=== PATIENT | male | born 1955 | race Caucasian/White ===

== ENCOUNTER → 2023-08-18 06:43 | Outpatient (REF) | payer OTHER, SELFPAY | LOC: MRI 06:43 | PROVIDERS: ATTENDING PHYSICIAN Nurse Practitioner Adult Health; FAMILY PHYSICIAN Emergency Medicine | DX: I63.9 Cerebral infarction, unspecified (principal); R51.9 Headache, unspecified; I72.5 Aneurysm of other precerebral arteries; R41.3 Other amnesia | CPT/HCPCS: 70551 ==

== ENCOUNTER 2023-08-28 16:11 | Emergency (ER) | payer OTHER, SELFPAY ==
[2023-08-28 16:18] VITALS: BP 148/68
--- NOTE | 2023-08-28 17:14 | ED.GENMED ---
History of Present Illness
General
Chief Complaint: Headache
Source: patient
Time Seen by Provider: 08/28/23 17:01
Travel History
Have you had any contact with someone who has COVID-19?: No
Do you have any symptoms of coronavirus? Fever > 100 degrees, chills, cough, shortness of breath, sore throat, loss of taste or smell, muscle aches, or headache?: No
History of Present Illness
History of Present Illness:
68-year-old male with past medical history of migraines, CVA, hypertension presenting to the emergency department for evaluation after he was speaking on the phone with his significant other, around 9:30 AM started to feel generally unwell. Shortly
after feeling unwell patient started to have a migraine described to be frontal headache, nonradiating, constant. He took a new migraine medication that he was just prescribed and states after around an hour or so started to have full relief of
symptoms and notes that he has remained without any symptoms. Patient's significant other recommended he contact his primary care provider which the patient did and primary care recommended he come to the ER for further evaluation. Due to his
history of CVA patient is on daily 81 mg aspirin which she reports good compliance with. He has a follow-up visit with the ENT scheduled for Wednesday due to an abnormal MRI finding of mastoiditis on his MRI that was performed as part of his CVA
workup.
Past History
Past History
ED Past Medical History: CVA, GERD, HTN and Hypercholesterolemia
ED Past Surgical History: None
Social History
Tobacco: Non-smoker
Alcohol: None
Drug: None
Personal: Other
Living: alone
Employment: Employed
Review of Systems
Review of Systems
All Other Systems: ROS reviewed and negative except as documented in HPI and ROS
Phy Exam
Physical Exam
Physical Exam:
GENERAL: Alert , in no apparent distress
EYE: pupils equal and reactive
NECK: Supple, no significant adenopathy.
ENT: o/p clr, mmm.
CARDIAC: Regular rate and rhythm .
LUNGS: Clear breath sounds bilaterally, no acute respiratory distress, no wheezes/rales/rhonchi
ABDOMEN: Soft, without focal tenderness, no r/g, no cvat
SKIN: Warm and dry, skin intact.
MUSCULOSKELETAL: No edema, well perfused.
PSYCH: Normal and appropriate interaction.
NEURO: Ambulates with steady gait, moves all extremities, 5 out of 5 upper and lower extremity strength bilateral, sensation grossly intact and equal to light touch. No dysmetria, no dysarthria, no aphasia
Scores
Heart Failure Risk
Heart Failure Risk Score: Not Applicable
Heart Score for Chest Pain Patients
STEMI patient?: Not applicable
Withdrawal Assessment of Alcohol
Withdrawal Assessment Completed?: Not applicable
Course
Orders/Labs/Results
Orders:
Orders
08/28/23 17:10
CT Head W/o Iv Contrast Urgent
Comment:
Reason For Exam: headache, hx cva
Vital Signs
Initial and Last Documented VS:
Initial Vital Signs
Temp Pulse Resp BP Pulse Ox
97.7 F 105 20 148/68 97
08/28/23 16:18 08/28/23 16:18 08/28/23 16:18 08/28/23 16:18 08/28/23 16:18
Last Documented Vital Signs
Temp Pulse Resp BP Pulse Ox
97.7 F 105 20 148/68 97
08/28/23 16:18 08/28/23 16:18 08/28/23 16:18 08/28/23 16:18 08/28/23 16:18
MDM/Problems Addressed
Differential Diagnosis Includes:
Migraine headache, tension headache, less concern for CVA
MDM/Problems Addressed:
68-year-old male present emergency department for evaluation after experiencing a headache today but also feeling as if you are having an out of body sensation. Primary care provider recommended patient come to the ER for further evaluation.
Patient did not experience any focal neurologic deficits during his migraine and maintains that he has no symptoms at this time. Due to his history of CVA will obtain a head CT. Anticipate if this is normal patient will be stable for discharge
home and outpatient management.
Chronic conditions affecting care: Neurological disorder (Migraine headache/CVA)
Acute Exacerbation and/or Progression of Chronic Illness: Neurological disorder (Migraine headache)
*Pulse Oximetry
Patient hypoxic: no
*Critical Care Note
Total Time (30-74mins, 75-104mins- exclusive of procedures): Not Applicable
Data Reviewed
Review of Other/Old Records Reveals: Labs, Records and Radiology Studies
Source: patient
Patient Management
Escalation/DeEscalation of care consider admission/obs:
Patient's head CT unremarkable for any acute pathology. He remains asymptomatic. He will follow-up with primary care provider as needed.
ED Attending Note
-
Portions of this chart may have been created with voice recognition software.� Occasional wrong word or��sound alike� substitutions may have occurred due to the inherent limitations of voice recognition software.
Discharge Plan
Departure
Patient Disposition: Home (Routine Discharge)
Date of Disposition: 08/28/23
Time of Disposition: 17:40
Patient with high blood pressure during this ER visit?: Yes
Discharge Problem:
Headache, migraine
Instructions: Migraines (DC)
Prescriptions:
No Action
losartan 50 mg Tablet
50 mg PO DAILY
acetaminophen-caffeine 500-65 mg Tablet
1 tab PO M68IONY PRN (Reason: migraines)
amlodipine 5 mg Tablet
5 mg PO DAILY
omeprazole 40 mg Capsule,Delayed Release(Dr/Ec)
40 mg PO DAILY
rizatriptan 10 mg Tablet,Disintegrating
10 mg PO DAILYPRN PRN (Reason: migraines)
Tremfya 100 mg/mL Auto-Injector
100 mg SC Q8W
atorvastatin 40 mg Tablet
40 mg PO QPM Qty: 30 0RF
clopidogrel 75 mg Tablet
75 mg PO DAILY Qty: 15 0RF
aspirin [Children's Aspirin] 81 mg Tablet,Chewable
81 mg PO DAILY Qty: 0 0RF
Referrals:
Yaneth Rockwell MD [Family Provider] -
Interventions
Interventions:
*ED COVID-19 Vaccine History Last Done: 08/28/23 16:18
Discharge Date and Time
Print Language: MALAY
[2023-08-28 17:50] VITALS: BP 139/73
== END 2023-08-28 18:00 | disposition home or self-care (01) ==
LOC: EMR 16:11
PROVIDERS: EMERGENCY PHYSICIAN Student in an Organized Health Care Education/Training Program; FAMILY PHYSICIAN Emergency Medicine
DX: G43.909 Migraine, unspecified, not intractable, without status migrainosus (principal); I10 Essential (primary) hypertension; K21.9 Gastro-esophageal reflux disease without esophagitis; E78.00 Pure hypercholesterolemia, unspecified; Z86.73 Personal history of transient ischemic attack (TIA), and cerebral infarction without residual deficits; Z79.82 Long term (current) use of aspirin; Z88.2 Allergy status to sulfonamides; Z88.8 Allergy status to other drugs, medicaments and biological substances
CPT/HCPCS: 99284; 70450

== ENCOUNTER 2023-10-28 13:07 | Inpatient (IN) | payer OTHER, SELFPAY ==
[2023-10-28] VITALS (18 sets, daily range): BP systolic 94–152; BP diastolic 59–118; BMI 31.6
--- NOTE | 2023-10-28 09:21 | ED.GENMED ---
History of Present Illness
General
Chief Complaint: Chest Pain
Time Seen by Provider: 10/28/23 09:06
Travel History
Have you had any contact with someone who has COVID-19?: No
Do you have any symptoms of coronavirus? Fever > 100 degrees, chills, cough, shortness of breath, sore throat, loss of taste or smell, muscle aches, or headache?: No
History of Present Illness
History of Present Illness:
68 yo male w/ hx of CVA, PFO, HTN and HLD presents to the Emergency Department for evaluation of chest tightness that began today while swimming. He notes over the past 2 weeks having throat discomfort with any exertion; this resolves rapidly at
rest. He had been able to swim lightly without reproduction of symptoms until the past 2 days. Currently asymptomatic. No prior diagnosed cardiac disease. Was admitted to this hospital in March 2023 due to acute ischemic stroke at which time a
Medtronic LINQ was implanted and PFO was noted on NICOLAS.
Past History
Past History
ED Past Medical History: CVA, GERD, HTN and Hypercholesterolemia
ED Past Surgical History: None
Social History
Tobacco: Non-smoker
Alcohol: None
Drug: None
Personal: Other
Living: alone
Employment: Employed
Review of Systems
Review of Systems
Allergies reviewed?: Yes
All Other Systems: ROS reviewed and negative except as documented in HPI and ROS
Phy Exam
Physical Exam
Physical Exam:
GEN: Well appearing, NAD, WDWN
HEENT: Oral mucosa moist, no scleral icterus
Cardiac: Regular rate and rhythm, no murmur
Lung: No respiratory distress, no tachypnea to auscultation bilaterally
MSK: No gross deformity or injuries
Skin: Good color, no pallor or jaundice, no rashes
Neuro: AO x3, moves all extremities freely
Psych: Calm, cooperative
Scores
Heart Score for Chest Pain Patients
STEMI patient?: No
History: Highly Suspicious
ECG: Normal
Age: >/= 65 years
Risk Factors: >/= 3 Risk Factors or History of CAD
Troponin: </= Normal Limit
Heart Score for Chest Pain Patients: 6
Heart Score Risk: 20.3% MACE over next 6 weeks
Course
Orders/Labs/Results
Orders:
Orders
10/28/23 09:02
Electrocardiogram (*1) Urgent
Reason for Study: Chest Pain
EKG- Treatment ONCE
10/28/23 09:17
CR Chest - 2 Views Urgent
Comment:
Reason For Exam: chest pain
10/28/23 09:38
Complete Blood Count/With Diff Urgent
Comprehensive Metabolic Panel Urgent
Troponin I Urgent
10/28/23 10:43
EKG- Treatment ONCE
Aspirin Chewable [Low Strength Aspirin] 243 mg PO NOW STA
10/28/23 12:05
Heparin Protocol- PTT Orders As Directed
PTT per Heparin protocol: -Obtain CBC and baseline PTT - if not already collected.
-Obtain PTT 6 hours from start of infusion. Then, every 6 hours until 2 consecutive
PTT's are therapeutic. Then, PTT Daily.
-With each rate change, obtain PTT every 6 hours until 2 consecutive PTT's are
therapeutic. Then, PTT Daily.
Notify MD As Directed
Notify physician if: PTT is greater than or equal to 200.
10/28/23 12:15
Heparin 50984 Units/250 ml 25,000 units in 250 ml IV PER PROTOCOL
Weight to be used for heparin protocol in kilograms (kg):: 94.2
Protocol:: Cardiac Tx/Acute Coronary
PTT Goal Range to be used:: PTT 73 to 111 seconds
Order type:: Initial
INITIAL Infusion Dose (UNITS/KG/hr) & then follow protocol:: 15 units/kg/hr
Infusion Dose in UNITS/hr & then follow protocol (UNITS/hr):: 1,400
INFUSION RATE in mL/hr & then follow protocol (mL/hr):: 14
PTT less than or equal to 64 seconds:: Increase rate by 200 units/hr (+ 2 mL/hr)
PTT 64.1 to 72.9 seconds:: Increase rate by 100 units/hr (+ 1 mL/hr)
PTT 73 to 111 seconds:: Target Range. No change in rate.
PTT 111.1 to 130.9 seconds:: Decrease rate by 100 units/hr (- 1 mL/hr)
PTT 131 to 199.9 seconds:: HOLD for 1 hr. Then decrease rate by 200 units/hr (- 2 mL/hr)
PTT greater than or equal to 200 seconds:: HOLD for 2 hrs & Notify Provider. Then decrease by 200 units/hr (-
2 mL/hr)
Lab follow-up:: Each change, PTT q6h until 2 consecutive are therapeutic. Then PTT
daily.
10/28/23 12:30
EKG [Electrocardiogram (*1)] Routine
Reason for Study: Chest Pain
10/28/23 12:34
PTT Urgent
Comment: Obtain baseline before beginning heparin infusion if not already collected
Troponin I Routine
10/28/23 12:51
Admit/Transfer Patient As Directed
Co-Sign Provider:
Level of Care: Inpatient admission
Assign to:: IVU
Physician / Group: [facility], Dr. Quintanilla
Diagnosis: USA, chest pain
Reason for Hospitalization: USA, chest pain
Expected length of stay greater than two midnights?: Yes
ELOS- Estimated Length of Stay in days: 2
I certify the patient meets the requirements for IP care: Yes
10/28/23 12:53
Code Status As Directed
Resuscitation Status: Full Code
10/30/23 06:00
Complete Blood Count/No Diff Q2D
Comment: Notify MD if platelet count is <130,000 or decreases by 50% from baseline
11/01/23 06:00
Complete Blood Count/No Diff Q2D
Comment: Notify MD if platelet count is <130,000 or decreases by 50% from baseline
11/03/23 06:00
Complete Blood Count/No Diff Q2D
Comment: Notify MD if platelet count is <130,000 or decreases by 50% from baseline
11/05/23 06:00
Complete Blood Count/No Diff Q2D
Comment: Notify MD if platelet count is <130,000 or decreases by 50% from baseline
11/07/23 06:00
Complete Blood Count/No Diff Q2D
Comment: Notify MD if platelet count is <130,000 or decreases by 50% from baseline
11/09/23 06:00
Complete Blood Count/No Diff Q2D
Comment: Notify MD if platelet count is <130,000 or decreases by 50% from baseline
11/11/23 06:00
Complete Blood Count/No Diff Q2D
Comment: Notify MD if platelet count is <130,000 or decreases by 50% from baseline
11/13/23 06:00
Complete Blood Count/No Diff Q2D
Comment: Notify MD if platelet count is <130,000 or decreases by 50% from baseline
Abnormal Lab Results
10/28/23 10/28/23
09:38 12:34
WBC 4.3 L 10^3/uL
(4.8-10.8)
Monocytes % 11.3 H %
(1.7-9.3)
Glucose 108 H mg/dl
(70-99)
Troponin I 0.054 H* D ng/ml
10/28/23 09:38
10/28/23 09:38
Vital Signs
Initial and Last Documented VS:
Initial Vital Signs
Temp Pulse Resp BP Pulse Ox
98.1 F 89 18 152/118 96
10/28/23 09:00 10/28/23 09:00 10/28/23 09:00 10/28/23 09:00 10/28/23 09:00
Last Documented Vital Signs
Temp Pulse Resp BP Pulse Ox
98.1 F 67 19 136/80 95
10/28/23 09:00 10/28/23 13:30 10/28/23 13:30 10/28/23 13:00 10/28/23 12:45
MDM/Problems Addressed
MDM/Problems Addressed:
68-year-old male presents with exertional chest discomfort for the past 2 weeks. I have a high clinical suspicion for coronary disease given his risk factors exertion nature of symptoms. Although his EKG is nonischemic and initial troponin was
nondiagnostic, I feel he is too high risk to be discharged home for further outpatient ischemic evaluation. Cardiology was consulted plans to admit the patient to their service for cardiac catheterization due to the high index of suspicion for ACS.
Comment
Comment:
Initial EKG independently interpreted by me shows a normal sinus rhythm with occasional PACs, rate of 76, questionable submillimeter ST depressions in V5 and V6 that are comparable to prior tracing from March 2023, QTc of 409
*Critical Care Note
Total Time (30-74mins, 75-104mins- exclusive of procedures): Not Applicable
Update Note
Update Note:
0939: Medtronic interrogation verbal report from rep showing no events since 10/13, battery life adequate
ED Attending Note
-
Portions of this chart may have been created with voice recognition software.� Occasional wrong word or��sound alike� substitutions may have occurred due to the inherent limitations of voice recognition software.
Discharge Plan
Departure
Patient Disposition: Admit
Date of Disposition: 10/28/23
Time of Disposition: 11:19
Admit to: Telemetry
Presentation/result/management discussed w/ accepting MD/DO: Cardiology
Discharge Problem:
Chest pain with high risk of acute coronary syndrome
Interventions
Interventions:
*Risk Screen - Suicide Last Done: 10/28/23 09:00
*General Assessment Last Done: 10/28/23 09:00
*Neglect/Abuse Screening Last Done: 10/28/23 09:00
ED- Fall Risk Assessment Last Done: 10/28/23 09:47
*ED COVID-19 Vaccine History Last Done: 10/28/23 09:31
*Nursing Disposition Last Done: 10/28/23 14:05
ED- Cardiac Assessment Last Done: 10/28/23 09:32
Discharge Date and Time
Discharge Date/Time: 10/28/23 14:06
[2023-10-28 09:55] LABS: % Basophils 1.2 % (0-2); % Eosinophils 2.1 % (0-6); % Immature Granulocytes 0.2 % (0-0.5); % Monocytes 11.3 % (1.7-9.3); % Neutrophils 55.2 % (42.2-75.2); Absolute Basophils 0.1 10^3/uL (0-0.2); Absolute Eosinophils 0.1 10^3/uL (0-0.7); Absolute Lymphocytes 1.3 10^3/uL (1.2-3.4); Absolute Monocytes 0.5 10^3/uL (0.1-0.6); Absolute Neutrophils 2.4 10^3/uL (1.4-6.5); Hematocrit 42.5 % (39.0-52.0); Hemoglobin 14.9 g/dL (13.0-18.0); Mean Corp Hgb Conc. 35.1 g/dL (33.0-37.0); Mean Corpuscular Hgb 30.8 pg (27.0-31.0); Mean Corpuscular Volume 87.8 fL (80.0-94.0); Mean Platelet Volume 10.1 fL (7.4-10.4); Nucleated Red Blood Cells % 0 % (-); Platelet Count 202 10^3/uL (130-400); Red Blood Cell Count 4.84 10^6/uL (4.70-6.10); White Blood Cell Count 4.3 10^3/uL (4.8-10.8)
[2023-10-28 10:12] LABS: ALT (SGPT) 36 U/L (0-50); AST (SGOT) 34 U/L (17-59); Albumin 4.1 g/dl (3.5-5.0); Alkaline Phosphatase 62 U/L (38-126); Blood Urea Nitrogen 15 mg/dl (9-20); Calcium 9.4 mg/dl (8.4-10.2); Carbon Dioxide 29 mmol/L (22-30); Chloride 107 mmol/L (98-107); Estimated Creatinine Clearance 98 ml/min; Glucose 108 mg/dl (70-99); Potassium 4.3 mmol/L (3.5-5.1); Sodium 140 mmol/L (135-145); Total Bilirubin 0.7 mg/dl (0.2-1.3); Total Protein 6.9 g/dl (6.3-8.2); eGFR > 60.00
[2023-10-28] MEDS: LOW STRENGTH ASPIRIN 243 MG PO (10:59)
--- NOTE | 2023-10-28 11:38 | PHANOTE ---
med rec ruth ann- patient states he took nurtec as needed for migraines from a free sample from doctor's office, but has run out weeks ago.
--- NOTE | 2023-10-28 12:07 | CON.CAR ---
Addendum entered and electronically signed by Isa Quintanilla MD 10/28/23 18:30:
I saw and examined the patient.
The Take Out Waiter's note was reviewed and I agree with the note.
Comment: Patient was seen and evaluated by me in the emergency department. Briefly he is a 68-year-old gentleman with past medical history of hypertension, hyperlipidemia, family history of coronary artery disease along with DVT/PEs, migraine
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
throat discomfort with progressed into exertional chest discomfort at the time of swimming associated with shortness of breath which caused him to present to the emergency department. ECG with nonspecific T wave changes in the inferior leads.
Patient is chest pain-free at rest.
Vital signs and lab work were reviewed. On exam patient is well-appearing in no acute distress, normal S1 and S2, regular rate, clear to auscultation bilaterally, elevated JVD PE, abdomen is soft, nontender, nondistended with active bowel sounds,
warm extremities without significant edema. 2+ radial pulse was appreciated.
Plan:
1. Given multiple cardiovascular risk factors with progressive exertional symptoms and typical angina, with concern for acute coronary syndrome, we discussed pursuing a coronary angiogram which patient is agreeable to. Detailed informed consent
was obtained.
2. In the interim we will start treatment medically for presumed NSTEMI with full dose aspirin, high intensity statin, IV unfractionated heparin and beta-fanny as tolerated.
3. Further recommendations based on heart catheterization. We will also plan for an echocardiogram today.
Isa Quintanilla MD, [facility], [facility]
Original Note:
Consultation
Consultation Request
Date/Time Consultation Performed: 10/28/23
Performing Provider: Dr. Isa Quintanilla
Reason for Consultation: H&P for admission e chest pain, [facility]
Medical History
-
History of Present Illness:
Patient came to [facility] today with chest pain and cardiology was called to see patient in the ER. Patient says that starting 2 weeks ago he noticed chest pain within 20 steps of his usual 4-5 mile walk that he takes 4-5 days a week. The chest pain is
relieved with rest. Patient says that he often continues his walk and the chest pain is constant throughout the walk, but does not necessarily get worse and he has not had to stop his walk because of pain. He also swims Tuesdays and and
says that he had pain with trying to swim this morning, but what really brought him in was an episode of resting chest pain he had last night. Chest pain is actually upper chest into the neck and feels like a spasm. Prior to last night pain only
occurred with activity, but last night he had pain in bed. Pain resolved without specific intervention and resting pain has not recurred.
PMH:
h/o CVA with embolic appearing posterior circulation ischemic infarction
PFO, possible ASD noted on transthoracic echocardiogram 03/26/23
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
Hypertension
Dyslipidemia
History of migraine headache
Family history of DVT/PE in siblings
Past Medical History
Past Medical History: Other (in HPI)
Past Surgical History: Cardiac (Linq since 03/2023)
Social History
Tobacco: Non-Smoker
Alcohol: Occasional (2-3 imtes a week)
Drug: None
Living: Alone
Family History
Family History: CAD and Cancer
Allergies / Home Medications
Allergy/AdvReac Type Severity Reaction Status Date / Time
ramipril [From Altace] Allergy Unknown Verified 10/28/23 09:00
Sulfa (Sulfonamide Allergy Unknown Verified 10/28/23 09:00
Antibiotics)
�Medication �Instructions �Recorded �Confirmed �Type
amlodipine 5 mg tablet 5 mg PO DAILY Blood Pressure 03/25/23 10/28/23 History
guselkumab 100 mg/mL subcutaneous 100 mg SC Q8W PSORIASIS 03/25/23 10/28/23 History
auto-injector (Tremfya)
losartan 50 mg tablet 50 mg PO DAILY Blood Pressure 03/25/23 10/28/23 History
omeprazole 40 mg capsule,delayed 40 mg PO DAILY High Cholesterol 03/25/23 10/28/23 History
release
aspirin 81 mg chewable tablet 81 mg PO DAILY #0 tabs 03/30/23 10/28/23 Rx
(Children's Aspirin)
atorvastatin 40 mg tablet 40 mg PO DAILY 10/28/23 10/28/23 History
budesonide-formoterol HFA 80 2 puff inhalation R DAILYPRN PRN 10/28/23 10/28/23 History
mcg-4.5 mcg/actuation aerosol sob
inhaler
famotidine 20 mg tablet 20 mg PO HS 10/28/23 10/28/23 History
therapeutic multivitamin 1 tab PO DAILY 10/28/23 10/28/23 History
Review of Systems
-
History Source: Patient
All other systems: Negative unless noted
Physical Exam
Vital Signs
Temp Pulse Resp BP Pulse Ox
98.1 F 75 19 131/78 96
10/28/23 09:00 10/28/23 09:28 10/28/23 09:28 10/28/23 09:28 10/28/23 09:47
GEN: NAD. AAOx3
HEENT: EOMI, MMM
LUNGS: CTA B/L, no wheezes or rales
CV: Reg, S1/S2, no murmur
ABD: soft, BS+, NT, ND
EXT: No clubbing, cyanosis, lesions or edema B/L
NEURO: Gross non-focal
SKIN: Warm, dry and pink. No rash
Lab Results
10/28/23 09:38
10/28/23 09:38
Troponin I 0.020 ng/ml 10/28/23 09:38
Impression / Plan
-
PCP: Dr. Rockwell
Cardiology: Dr. Quintanilla
Impression:
USA
Abnormal ECG
Admission for CVA and PFO 03/25/23 until 03/30/23
h/o CVA with embolic appearing posterior circulation ischemic infarction
PFO, possible ASD noted on transthoracic echocardiogram 03/26/23
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
Hypertension
Dyslipidemia
History of migraine headache
Family history of DVT/PE in siblings
Echo 03/26/23: EF 55-60%, normal diastolic function, normal RV size and function, mild aortic regurgitation, evidence of right to left shunt with agitated saline contrast consistent with PFO/ASD
Plan:
-Patient came to [facility] today with chest pain and cardiology was called to see patient in the ER. Patient says that starting 2 weeks ago he noticed chest pain within 20 steps of his usual 4-5 mile walk that he takes 4-5 days a week. The chest pain is
relieved with rest. Patient says that he often continues his walk and the chest pain is constant throughout the walk, but does not necessarily get worse and he has not had to stop his walk because of pain. He also swims Tuesdays and and
says that he had pain with trying to swim this morning, but what really brought him in was an episode of resting chest pain he had last night. Chest pain is actually upper chest into the neck and feels like a spasm. Prior to last night pain only
occurred with activity, but last night he had pain in bed. Pain resolved without specific intervention and resting pain has not recurred.
-Initial Troponin 0.02. ECG reviewed by me with new inferior and lateral ST changes. Patient also gives a history of USA with resting chest pain episode last night. Talked to patient about options of evaluating his symptoms and he wishes to proceed
with cardiac catheterization.
-Will start Heparin gtt in the ER, ordered by me
-Patient took his usual dose of aspirin 81 mg this morning and was given an additional 243 mg in the ER
-Patient previously tolerated DAPT with aspirin and Plavix for 3 weeks after his CVA 03/2023. Reviewed labor gang supervisor procedure and possibility of PCI and need for DAPT with patient and he cannot think of a reason why he owuld not tolerate DAPT.
-Check CVE, cont usual dose of atorvastatin 40 mg daily for now
-Prior to admission patient was taking amlodipine 5 mg daily and losartan 50 mg daily as well
-Check echo
[2023-10-28] MEDS: HEPARIN 25000 UNITS/250 ML IV (12:38)
[2023-10-28 13:05] LABS: APTT 33.9 Sec (23.4-35.0)
[2023-10-28 13:32] LABS: Troponin I 0.054 ng/ml
[2023-10-28 14:56] LABS: ACT-LR - POC 285 Seconds (116-155)
[2023-10-28 16:13] LABS: ACT-LR - POC 308 Seconds (116-155)
--- NOTE | 2023-10-28 16:38 | ITS.CL.CATH ---
P[facility] - Catheterization
Cardiac Catheterization
Procedure Report:
LEFT HEART CATHETERIZATION AND CORONARY INTERVENTION
Date of Procedure: October 28, 2023
Referring: [facility]
PROCEDURES:
1. Left catheterization, coronary angiogram.
2. Ultrasound-guided access.
3. Successful percutaneous coronary artery intervention of 2 serial 90% hazy stenoses in the proximal and mid RCA, complicated by significant no reflow in mid to distal LAD post pre-dilatation resulting in significant chest discomfort and ST
elevations periprocedurally status post placement of two 3.5 x 23 mm and 3.5 x 33 mm Xience Skypoint drug-eluting stents, postdilated using 3.75 x 20 mm NC trek balloon at 18 curt distally and 4.0 x 20 mm NC trek balloon at 20 curt proximally with an
excellent angiographic result and GIACOMO-3 flow into the distal vessel
INDICATION: Mr. Silver is a 68-year-old gentleman with past medical history of hypertension, hyperlipidemia, recent stroke in March thought to be embolic in origin, incidental PFO found during that admission, significant family history of coronary
artery disease who presents with 2 weeks of progressive exertional chest discomfort and rest discomfort today found to have an NSTEMI now being referred for a left heart catheterization to rule out obstructive CAD.
ACCESS: Right radial artery, 6 Estonian sheath, under ultrasound guidance. There is some right subclavian tortuosity.
HEMODYNAMICS : (mmHg)
AO (s/d) : 127/82
LV (s/d) : 125/6
LVEDP : 15
CORONARY FINDINGS
DOMINANCE: Right
LEFT MAIN: The left main artery is a large-caliber vessel which gives rise to the left anterior descending artery and the left circumflex artery. There is minimal luminal irregularities.
LEFT ANTERIOR DESCENDING: The left anterior descending artery is a large-caliber vessel which gives rise to 1 major diagonal branch as it courses through the anterior interventricular groove and wraps around the apex. There is a 50% proximal LAD
stenosis at the level of the takeoff of a very large septal branch.
CIRCUMFLEX: The left circumflex artery is a medium caliber vessel which gives rise to 2 obtuse marginal branches. There is mild disease in the mid left circumflex artery and otherwise minimal luminal irregularities.
RIGHT CORONARY ARTERY: The right coronary artery is a large-caliber, dominant vessel with a high anterior takeoff (engage selectively using a MPA diagnostic catheter) which gives rise to the right posterior descending artery and the right
posterolateral system. There are 2 serial hazy high-grade 90% stenoses in the proximal and mid RCA, respectively which are thought to be the likely culprit of presenting NSTEMI. Decision was made to move forward with intervention percutaneously.
CORONARY INTERVENTION: Soon after the diagnostic portion patient had sudden onset of rigors without clear etiology but did not have any other complaints. We made sure that there was no evidence of an allergic type reaction. Hemodynamically patient
was stable. We decided to give additional sedation and a bit more time before proceeding with intervention. Patient's symptoms completely resolved within 2 to 3 minutes and therefore decision was made to not staged intervention but move forward
given he presented with a non-ST elevation MN. Additional heparin was given to maintain a therapeutic ACT throughout the case. A 6 Estonian MPA 1 guide catheter was used to selectively engage the RCA. We navigated the to proximal and mid RCA
lesions using a 190 cm 0.014 power turn flex wire which was parked in the distal vessel. Given the anterior high takeoff of the RCA with a immediate band soon after takeoff we decided to upfront bring in a guide liner for additional support. We
then brought in a 3.0 x 20 mm trek semicompliant balloon for predilatation and predilated the lesions at nominal pressure with good expansion. Soon after predilated and the mid RCA stenosis, GIACOMO I flow was noted in the distal vessel with evidence
of coronary no reflow. At this time we also noted new ST elevations on our monitor and patient complained of chest discomfort. We moved expeditiously to stent the lesions. Initially we deployed a 3.5 x 23 mm Xience haja point drug-eluting stent
covering the mid RCA lesion. We then brought in a 3.5 x 33 mm Xience haja point drug-eluting stent and deployed this more proximally. Given no significant improvement in flow with ongoing chest discomfort and ST elevations we decided to attempt
bringing in microcatheter's to deliver vasodilators into the distal vessel to improve coronary no reflow. Intracoronary nitroglycerin was given through the guide catheter in the meantime. In the setting of a periprocedural MN, patient also had
transient 2-1 heart block low doses of atropine. We had also called for additional support and CT surgeon, Dr. Kwabena Armenta was present in the [facility]. We removed the guide liner and try to bring in a 300 cm 0.014' BMW wire through a fine cross
microcatheter however given poor guide support and patient movement we had some difficulty navigating this wire. Given this we decided to bring in a twin pass over the power turn flex wire that was already in place. Again due to guide support
being poor, we had difficulty advancing the twin pass microcatheter beyond the proximal portion. At this point we took a selective angiography to make sure we were not getting caught on anything else and to help reposition the guide for better
support. At this point just with intra coronary nitroglycerin we had given through the guide catheter flow seem to have improved and was GIACOMO-3 into the distal vessel. We therefore decided to move forward with postdilatation of the stents. The
stents were initially postdilated using a 3.75 x 20 mm NC balloons at 18 curt. We further postdilated the proximal stent with a 4.0 x 20 mm NC trek balloon at 20 curt with an excellent angiographic result and GIACOMO-3 flow into the distal vessel. At
the end of the case patient was in a stable junctional rhythm with heart rates in the high 50s, low 60s. Blood pressure was normal. Patient was chest pain-free at the end of the case. He was loaded with 180 mg of ticagrelor.
SEDATION: 156 minutes of procedural sedation was utilized. An independent medical physiologist was present to assist with and help manage the patient's level of consciousness and physiologic status.
RADIATION SUMMARY: Fluoro Time (min): 42.4, Dose (mGy): 1858.4, DAP (Gy.cm2) : 115.8
Closure Device: Vascular band over right radial artery, 14 cc of air
CONCLUSIONS
1. Successful percutaneous coronary artery intervention of 2 serial 90% hazy stenoses in the proximal and mid RCA, complicated by significant no reflow in mid to distal LAD post pre-dilatation resulting in significant chest discomfort and ST
elevations periprocedurally status post placement of two 3.5 x 23 mm and 3.5 x 33 mm Xience Skypoint drug-eluting stents, postdilated using 3.75 x 20 mm NC trek balloon at 18 curt distally and 4.0 x 20 mm NC trek balloon at 20 curt proximally with an
excellent angiographic result and GIACOMO-3 flow into the distal vessel
2. 50% stenosis in the proximal LAD at the level of the takeoff of a very large septal branch.
3. Mildly elevated LVEDP at 15mmHG.
RECOMMENDATIONS
1. Uninterrupted dual antiplatelet therapy with daily baby aspirin and Brilinta 90 mg twice daily for at least 1 year along with high intensity statin. Holding off on beta-fanny for now in the setting of junctional heart rhythm.
2. Monitor closely on telemetry for 24 to 48 hours.
3. Obtain full echocardiogram to assess biventricular function.
4. Aggressive management of cardiovascular risk factors.
5. Wean radial band per protocol.
6. Outpatient referral for cardiac rehab.
Isa Quintanilla MD, FACC, [facility] [place]
--- NOTE | 2023-10-28 17:15 | PTCARENOTE ---
Pt arrived to CVICU at 1650. No complaints of chest pain. Arrived on Nitro @ 20mcg/min. EKG completed, accelerated junctional rhythm. HR 70. BP 111/63 MAP 76. Pulse oximetry 95% on room air. Right radial band in place with 14mL air, site intact, no
complaints of numbness or tingling. Neurovascular assessment WNL.
[2023-10-28] MEDS: PROTONIX 40 MG PO (18:00)
--- NOTE | 2023-10-28 19:57 | PTCARENOTE ---
rec'd patient. assessment as documented. oriented x3, denies CP, nitro gtt titrated off per protocol. SB on monitor. R radial TR band in place, no swelling or bleeding noted. on RA, denies SOB, satting 97%. currently finishing dinner, urinal at
bedside. family at bedside, updated. educated to inform this RN of any changes with TR band site or new onset CP. call chambers within reach, care ongoing.
[2023-10-28] MEDS: PEPCID 20 MG PO (20:41)
--- NOTE | 2023-10-28 21:10 | PTCARENOTE ---
R radial TR band removed at 2105. sterile gauze and tegaderm applied.
--- NOTE | 2023-10-28 21:31 | PTCARENOTE ---
pt c/o throat cramping. he informed this RN that this specific pain preceded his chest pain prior to arrival. chief financial officer monitoring manager notified. nitro gtt remains on standby. also notified of bradycardia in 40s. pt asymptomatic for now. no new orders at
this time. pt educated to inform RN of new onset CP. care ongoing.
[2023-10-28 23:20] LABS: APTT 33.3 Sec (23.4-35.0)
[2023-10-29] VITALS (13 sets, daily range): BP systolic 111–149; BP diastolic 64–88; BMI 29.3
[2023-10-29 04:57] LABS: Hematocrit 40.4 % (39.0-52.0); Hemoglobin 14.4 g/dL (13.0-18.0); Mean Corp Hgb Conc. 35.6 g/dL (33.0-37.0); Mean Corpuscular Hgb 30.6 pg (27.0-31.0); Platelet Count 184 10^3/uL (130-400); Red Cell Dist. Width 12.3 % (11.5-14.5); White Blood Cell Count 6.6 10^3/uL (4.8-10.8)
--- NOTE | 2023-10-29 05:16 | PTCARENOTE ---
pt OOB with supervision to bathroom. remains in chair after. hygiene provided. AM labs sent. EKG done. pt denies CP at this time, states that throat cramping/pain has resolved. remains SB on monitor. nitro gtt remains off. call chambers within reach,
care ongoing.
[2023-10-29 05:26] LABS: Blood Urea Nitrogen 13 mg/dl (9-20); Calcium 9.4 mg/dl (8.4-10.2); Carbon Dioxide 25 mmol/L (22-30); Chloride 107 mmol/L (98-107); Estimated Creatinine Clearance 86 ml/min; Glucose 102 mg/dl (70-99); HDL Cholesterol 42 mg/dl; LDL Cholesterol, Calculated 49 mg/dl; Potassium 4.4 mmol/L (3.5-5.1); Sodium 138 mmol/L (135-145); Total Cholesterol 112 mg/dl (50-199); Triglyceride 107 mg/dl (10-149); Very Low Density Lipoprotein 21 mg/dl (0-30); eGFR > 60.00
[2023-10-29 06:14] LABS: Hepatitis C Antibody Negative (Negative)
[2023-10-29] MEDS: NORVASC PO (07:24)
[2023-10-29] MEDS: COZAAR 50 MG PO (07:24)
[2023-10-29] MEDS: PROTONIX 40 MG PO (07:24)
[2023-10-29] MEDS: LIPITOR 40 MG PO (07:24)
[2023-10-29] MEDS: BRILINTA 90 MG PO ×2 (07:24→21:20)
[2023-10-29] MEDS: THERAGRAN 1 TABLET PO (07:25)
[2023-10-29] MEDS: LOW STRENGTH ASPIRIN 81 MG PO (07:25)
--- NOTE | 2023-10-29 07:36 | PTCARENOTE ---
rec'd pt this shift awake and alert sitting in chair. Pt SB on monitor, denies CP, SOB. AM meds given. See worklist for VS/I and O and assessments.
--- NOTE | 2023-10-29 09:11 | W.PN.CARDCBS ---
Addendum entered and electronically signed by Isa Quintanilla MD 10/29/23 13:22:
I saw and examined the patient.
The Glass Melt Operator's note was reviewed and I agree with the note.
Comment: Patient remained stable throughout the night with no recurrent chest discomfort. He tells me he had a brief episode of very mild throat discomfort which resolved without any significant interventions. He has been ambulating within his
room this morning without any difficulty. No issues at the right radial access site.
Vital signs and lab work reviewed. ECG showing no acute ischemic changes. Exam is notable for a well-appearing gentleman in no acute distress, normal S1 and S2, no murmurs, rubs or gallops, lungs are clear to auscultation bilaterally, no JVD,
right radial access site has a dressing in place which is clean dry and intact without evidence on exam of hematoma or bruit, warm extremities without significant edema
On telemetry he is in sinus bradycardia with heart rates in the 70s. His blood pressures are above 100 systolic.
Recommendations:
1. Continue with dual antiplatelet therapy with daily baby aspirin and Brilinta 90 mg twice daily along with high intensity statin.
2. Plan to follow-up on echocardiogram today.
3. Will aim to start low-dose beta-fanny later tonight versus tomorrow. Continue amlodipine and losartan.
4. Continue to monitor on telemetry for another 24 hours. Stable for transfer to IVU.
5. Referral for outpatient cardiac rehab.
Isa Quintanilla MD, [facility], [facility]
Original Note:
Today's Communication / Plan
-
continue post [place] care
serial troponin to peak
Echo today
DAPT
Ok to transfer to IVU
Impression / Plan
-
PCP: Dr. Rockwell
Cardiology: Dr. Quintanilla
Impression:
NSTEMI
periprocedural STEMI post PCI RCA x 2 MALIA
Admission for CVA and PFO 03/25/23 until 03/30/23
h/o CVA with embolic appearing posterior circulation ischemic infarction
PFO, possible ASD noted on transthoracic echocardiogram 03/26/23
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
Hypertension
Dyslipidemia
LOUISE/CPAP
History of migraine headache
Family history of DVT/PE in siblings
Echo 03/26/23: EF 55-60%, normal diastolic function, normal RV size and function, mild aortic regurgitation, evidence of right to left shunt with agitated saline contrast consistent with PFO/ASD
10/28/23 [facility]:
1. Successful percutaneous coronary artery intervention of 2 serial 90% hazy stenoses in the proximal and mid RCA, complicated by significant no reflow in mid to distal LAD post pre-dilatation resulting in significant chest discomfort and ST
elevations periprocedurally status post placement of two 3.5 x 23 mm and 3.5 x 33 mm Xience Skypoint drug-eluting stents, postdilated using 3.75 x 20 mm NC trek balloon at 18 curt distally and 4.0 x 20 mm NC trek balloon at 20 curt proximally with an
excellent angiographic result and GIACOMO-3 flow into the distal vessel
2. 50% stenosis in the proximal LAD at the level of the takeoff of a very large septal branch.
3. Mildly elevated LVEDP
Plan:
-Post PCI RCA x2 periprocedurally had no reflow with CP and ST elevations with some bradycardia and JR, admitted to CVICU post
-this morning he is CP free, tele with SR no sig ectopy o/n
-Serial troponin to peak - 4.0 this am
-Full Echo today, limited echo intraprocedural with no effusion or WMA
-DAPT ASA/Brilinta uninterrupted for 1 year, CM to eval cost
-continue losartan, will wait to add BB today with bradycardia o/n and see what Echo shows
-LDL 49, continue atorvastatin 40mg
-Cardiac rehab c/s
-Activity restrictions reviewed
-f/u DCA 2-4 weeks
-OK to transfer to IVU
-continue to monitor on tele another 24 hours
Progress Note - Wire Frame Lamp Shade Maker
Subjective
Date of Service: October 29, 2023
no cp, sob
Objective
Labs:
10/29/23 04:48
10/29/23 04:48
Labs
Hgb 14.4 g/dL (13.0-18.0) 10/29/23 04:48
Hct 40.4 % (39.0-52.0) 10/29/23 04:48
Plt Count 184 10^3/uL (130-400) 10/29/23 04:48
APTT 33.3 Sec (23.4-35.0) 10/28/23 23:01
Sodium 138 mmol/L (135-145) 10/29/23 04:48
Potassium 4.4 mmol/L (3.5-5.1) 10/29/23 04:48
BUN 13 mg/dl (9-20) 10/29/23 04:48
Creatinine 0.8 mg/dL (0.7-1.3) 10/29/23 04:48
Glucose 102 mg/dl (70-99) H 10/29/23 04:48
Troponins
10/28/23 10/28/23 10/28/23
09:38 12:34 18:10
Troponin I 0.020 0.054 H* D 0.190 H* D
10/28/23 10/28/23 10/29/23
20:00 23:03 04:48
Troponin I Cancelled 1.180 H* D 4.010 H* D
10/29/23
05:04
Troponin I Cancelled
Vital Signs and I&O:
Vital Signs
Temp Pulse Resp BP Pulse Ox
98.3 F 54 18 128/71 98
10/29/23 07:20 10/29/23 07:24 10/29/23 07:20 10/29/23 07:24 10/29/23 07:32
Vital Signs
Temp Pulse Resp BP Pulse Ox
98.3 F 54 18 128/71 98
10/29/23 07:20 10/29/23 07:24 10/29/23 07:20 10/29/23 07:24 10/29/23 07:32
Intake & Output
10/27/23 10/28/23 10/29/23 10/30/23
06:59 06:59 06:59 06:59
Intake Total 725.3 / 725.3 500 / 500
Output Total 250 / 250
Balance 475.3 / 475.3 500 / 500
Physical Exam
Physical Exam
General: No acute distress, AAOX3
HEENT: EOMI b/l
Neck: Negative JVD, Neg carotid bruits b/l
Heart: Regular, Negative S3 positive S1/S2, Negative S4, No murmur
Lungs: CTA b/l, negative wheezes/rales/rhonchi
Abd: Positive BS, NT/ND, neg rebound/rigidity/guarding
Ext: Negative cyanosis/clubbing/edema
Neuro: nonfocal
Skin: w/d/i, R rad site c/d/i, scant ecchymosis
--- NOTE | 2023-10-29 09:42 | CM ---
crys soto -called pts [facility]- his copay is $47, it is in stock.
[2023-10-29] MEDS: NORVASC 5 MG PO (09:50)
--- NOTE | 2023-10-29 10:09 | PTCARENOTE ---
Assumed care of pt upon tsf from CV. Pt arrives ambulating from previous room. VSS, CM shows NSR 60-70's, POX 95% on RA. Right radial site remains CDI with normal CMS. He denies any pain or discomfort at this time. Ambulating frequently in
hallway. Trop due at 1200.
--- NOTE | 2023-10-29 12:30 | PTCARENOTE ---
Trop still rising last one up to 5.320 will re-check at 1800.
[2023-10-29 12:37] LABS: Glycohemoglobin (HgbA1c) 5.8 % (4.0-5.6)
--- NOTE | 2023-10-29 12:44 | CM ---
Chart reviewed. Patient is independent of ADLS, lives alone in a 1 STH, 3 DANIAL around front and 4 DANIAL around side, 0 DME. Plan is for the patient to return home no needs CM to follow
--- NOTE | 2023-10-29 12:45 | CM ---
Pricing on Brilinta through the patient's [facility] is $47 a month retail and $94 for 90 day mail order. Patient is agreeable to the cost. I called the patient's [facility] and it is in stock.. I placed a free 30 day coupon in the patient's red
discharge folder
[2023-10-29] MEDS: TOPROL XL 12.5 MG PO (17:24)
--- NOTE | 2023-10-29 20:45 | PTCARENOTE ---
Assumed care of pt from prev nsg shift, AAOx3 w/no c/o CP or SOB. Pt w/VS stable w/HR 60's-70's, BP 123/75. Pt w/R radial cath site w/dressing C/D/I w/some purple/red ecchymosis around the site, but no signs or symptoms of bleeding or hematoma. Pt
w/call chambers within reach & plan of care ongoing.
[2023-10-29] MEDS: PEPCID 20 MG PO (21:20)
[2023-10-30 04:47] VITALS: BP 127/72
[2023-10-30 05:07] LABS: Hematocrit 40.1 % (39.0-52.0); Hemoglobin 14.3 g/dL (13.0-18.0); Mean Corp Hgb Conc. 35.7 g/dL (33.0-37.0); Mean Corpuscular Hgb 30.7 pg (27.0-31.0); Mean Corpuscular Volume 86.1 fL (80.0-94.0); Platelet Count 181 10^3/uL (130-400); Red Blood Cell Count 4.66 10^6/uL (4.70-6.10); Red Cell Dist. Width 12.2 % (11.5-14.5); White Blood Cell Count 5.8 10^3/uL (4.8-10.8)
[2023-10-30 06:47] VITALS: BP 132/85
[2023-10-30] MEDS: THERAGRAN 1 TABLET PO (08:06)
[2023-10-30] MEDS: LOW STRENGTH ASPIRIN 81 MG PO (08:07)
[2023-10-30] MEDS: LIPITOR 40 MG PO (08:07)
[2023-10-30] MEDS: NORVASC 5 MG PO (08:07)
[2023-10-30] MEDS: BRILINTA 90 MG PO (08:07)
[2023-10-30] MEDS: COZAAR 50 MG PO (08:07)
[2023-10-30] MEDS: PROTONIX 40 MG PO (08:07)
--- NOTE | 2023-10-30 08:34 | W.PN.CARDCBS ---
Addendum entered and electronically signed by Amber Jane PA-C 10/30/23 11:34:
[id number]
Addendum entered and electronically signed by Sky Rubio MD 10/30/23 09:18:
Patient seen, interviewed and examined by me.
Well-appearing, no acute distress
Regular rate and rhythm with normal S1 and S2, no S3 no S4. There is a grade 1/6 AHSM and no rubs. PMI is normally placed.
Lungs are clear to auscultation bilaterally without wheezes rales or rhonchi.
Abdomen soft nontender nondistended with normoactive bowel sounds
Extremities show trace pretibial edema bilaterally no clubbing or cyanosis.
He remains pain-free.
Agree with advanced practice professionals assessment and plan as noted below.
Discussed with patient and all of his questions have been answered. Outpatient follow-up has been arranged.
Original Note:
Today's Communication / Plan
-
Stable for d/c to home
Impression / Plan
-
PCP: Dr. Rockwell
Cardiology: Dr. Quintanilla
Impression:
NSTEMI, peak Troponin 5.32
Periprocedural STEMI
CAD
s/p 3.5 mm and 3.5 mm Xience to mid to distal 10/28/23
residual 50% LAD lesion by cath 10/28/23
Admission for CVA and PFO 03/25/23 until 03/30/23
h/o CVA with embolic appearing posterior circulation ischemic infarction
PFO, possible ASD noted on transthoracic echocardiogram 03/26/23
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
Hypertension
Dyslipidemia
LOUISE/CPAP
History of migraine headache
Family history of DVT/PE in siblings
Echo 03/26/23: EF 55-60%, normal diastolic function, normal RV size and function, mild aortic regurgitation, evidence of right to left shunt with agitated saline contrast consistent with PFO/ASD
Echo 10/28/23: EF 55 to 60%, no regional wall motion abnormality
Echo 10/29/23: EF 65 to 70%, no regional wall motion abnormality, no MR, mild aortic regurgitation
Plan:
-Patient with USA on admission and Troponin was trending up to 0.054 just prior to going to the skilled laborer. While in the skilled laborer patient was found to have RCA disease and there was no reflow following initial pre-dilatation which resolved with PCI.
Troponin peaked at 5.32.
-Patient previously tolerated aspirin and Plavix post-CVA in 03/2023. Patient reports that his cost for Brilinta will be $94 for 3 months which might be tight for his finances so he might be interested in transitioning from Brilinta to Plavix in the
future.
-Overnight tele reviewed and he tolerated addition of Toprol XL 12.5 mg 10/29/23 PM. No heart block and no significant bradycardia. Will continue Toprol XL upon d/c
-LDL 49 and outpatient dose of atorvastatin 40mg continued
-Outpatient dose of losartan 50 mg daily continued
-Outpatient dose of amlodipine 5 mg daily continued
-D/C to home
Progress Note - Evaluation Manager
Subjective
Date of Service: October 30, 2023
He feels well and wants to go home
Objective
Labs:
10/30/23 04:53
10/29/23 04:48
Labs
Hgb 14.3 g/dL (13.0-18.0) 10/30/23 04:53
Hct 40.1 % (39.0-52.0) 10/30/23 04:53
Plt Count 181 10^3/uL (130-400) 10/30/23 04:53
APTT 33.3 Sec (23.4-35.0) 10/28/23 23:01
Sodium 138 mmol/L (135-145) 10/29/23 04:48
Potassium 4.4 mmol/L (3.5-5.1) 10/29/23 04:48
BUN 13 mg/dl (9-20) 10/29/23 04:48
Creatinine 0.8 mg/dL (0.7-1.3) 10/29/23 04:48
Glucose 102 mg/dl (70-99) H 10/29/23 04:48
Troponins
10/28/23 10/28/23 10/28/23
09:38 12:34 18:10
Troponin I 0.020 0.054 H* D 0.190 H* D
10/28/23 10/28/23 10/29/23
20:00 23:03 04:48
Troponin I Cancelled 1.180 H* D 4.010 H* D
10/29/23 10/29/23 10/29/23
05:04 12:22 18:25
Troponin I Cancelled 5.320 H* D 4.350 H*
10/30/23
04:53
Troponin I 2.850 H*
Vital Signs and I&O:
Vital Signs
Temp Pulse Resp BP Pulse Ox
97.7 F 62 18 127/72 96
10/30/23 07:00 10/30/23 05:00 10/30/23 07:00 10/30/23 04:47 10/30/23 07:00
Vital Signs
Temp Pulse Resp BP Pulse Ox
97.7 F 62 18 127/72 96
10/30/23 07:00 10/30/23 05:00 10/30/23 07:00 10/30/23 04:47 10/30/23 07:00
Intake & Output
10/28/23 10/29/23 10/30/23 10/31/23
06:59 06:59 06:59 06:59
Intake Total 725.3 / 725.3 1340 / 1340
Output Total 250 / 250
Balance 475.3 / 475.3 1340 / 1340
Physical Exam
Physical Exam
GEN: NAD. AAOx3
HEENT: EOMI, MMM
LUNGS: No audible wheeze
CV: SR on tele
ABD: ND
EXT: No edema B/L
NEURO: Gross non-focal
SKIN: No rash
--- NOTE | 2023-10-30 10:00 | W.DS.TRANS ---
DC Summary - Bail Bondsman
-
Discharge Instructions:
Discharge Diagnosis/Procedures NSTEMI, Angioplasty with stent to RCA x2
Diet Low Cholesterol
Driving Restrictions No driving for 24 hours
Bathing Restrictions OK to Shower
Other Services Cardiac Rehab
Instructions:
Stand-Alone Forms: DC Instructions- Cath/EP Lab
Changes to Home Medications: Yes
Discharge Medications:
DC Medications w/original date entered in [employer]
amlodipine 5 mg tablet 5 mg PO DAILY Blood Pressure 03/25/23
guselkumab 100 mg/mL subcutaneous auto-injector (Tremfya) 100 mg SC Q8W PSORIASIS 03/25/23
losartan 50 mg tablet 50 mg PO DAILY Blood Pressure 03/25/23
omeprazole 40 mg capsule,delayed release 40 mg PO DAILY High Cholesterol 03/25/23
aspirin 81 mg chewable tablet (Children's Aspirin) 81 mg PO DAILY #0 tabs 03/30/23
atorvastatin 40 mg tablet 40 mg PO DAILY 10/28/23
budesonide-formoterol HFA 80 mcg-4.5 mcg/actuation aerosol inhaler 2 puff inhalation R DAILYPRN PRN sob 10/28/23
famotidine 20 mg tablet 20 mg PO HS 10/28/23
therapeutic multivitamin 1 tab PO DAILY 10/28/23
metoprolol succinate 25 mg tablet,extended release 24 hr 12.5 mg (1/2 x 25 mg) PO QPM #30 tabs 10/29/23
nitroglycerin 0.4 mg sublingual tablet 0.4 mg sublingual [id number] PRN chest pain #25 tabs 10/29/23
ticagrelor 90 mg tablet (Brilinta) 90 mg PO BID #60 tabs 10/29/23
Home Medication Changes
New to Brilinta, Toprol XL and Nitroglycerin sublingual as a PRN
Pending Results: No
== END 2023-10-30 12:21 | disposition home or self-care (01) | DRG 322 ==
LOC: IVU 13:07
PROVIDERS: Nurse Practitioner Adult Health; Physician Assistant; Physician Assistant Medical; ADMITTING PHYSICIAN Internal Medicine Interventional Cardiology; EMERGENCY PHYSICIAN Emergency Medicine; FAMILY PHYSICIAN Emergency Medicine
PROC: 027035Z Dilation of Coronary Artery, One Artery with Two Drug-eluting Intraluminal Devices, Percutaneous Approach (ICD-10-PCS; 2023-10-28)
PROC: 4A023N7 Measurement of Cardiac Sampling and Pressure, Left Heart, Percutaneous Approach (ICD-10-PCS; 2023-10-28)
PROC: B2111ZZ Fluoroscopy of Multiple Coronary Arteries using Low Osmolar Contrast (ICD-10-PCS; 2023-10-28)
DX: I21.4 Non-ST elevation (NSTEMI) myocardial infarction (principal); Q21.12 Patent foramen ovale; I25.10 Atherosclerotic heart disease of native coronary artery without angina pectoris; I10 Essential (primary) hypertension; G47.33 Obstructive sleep apnea (adult) (pediatric); Z86.73 Personal history of transient ischemic attack (TIA), and cerebral infarction without residual deficits; Z79.82 Long term (current) use of aspirin
CPT/HCPCS: 93308; 71046; 80048; 80053; 80061; 83036; 84484; 85025; 85027; 85347; 85730; 86803; 93005; 93306; 93458; 96365; 99152; 99153; 99285; C1725; C1769; C1874; C1887; C1894; C9600; J0153; J1327

== ENCOUNTER 2023-11-01 16:09 | Emergency (ER) | payer OTHER, SELFPAY ==
[2023-11-01 16:11] VITALS: BP 139/81
[2023-11-01 16:19] VITALS: BP 143/83
[2023-11-01 16:25] VITALS: BMI 30.9
[2023-11-01 16:36] LABS: % Basophils 0.8 % (0-2); % Eosinophils 2.4 % (0-6); % Immature Granulocytes 0.3 % (0-0.5); % Monocytes 11.3 % (1.7-9.3); % Neutrophils 61.2 % (42.2-75.2); Absolute Basophils 0.1 10^3/uL (0-0.2); Absolute Eosinophils 0.2 10^3/uL (0-0.7); Absolute Lymphocytes 1.5 10^3/uL (1.2-3.4); Absolute Monocytes 0.7 10^3/uL (0.1-0.6); Absolute Neutrophils 3.9 10^3/uL (1.4-6.5); Hematocrit 41.1 % (39.0-52.0); Mean Corp Hgb Conc. 36.5 g/dL (33.0-37.0); Mean Corpuscular Hgb 30.7 pg (27.0-31.0); Mean Corpuscular Volume 84.2 fL (80.0-94.0); Mean Platelet Volume 10.2 fL (7.4-10.4); Nucleated Red Blood Cells % 0 % (-); Platelet Count 213 10^3/uL (130-400); Red Blood Cell Count 4.88 10^6/uL (4.70-6.10); Red Cell Dist. Width 12.1 % (11.5-14.5); White Blood Cell Count 6.3 10^3/uL (4.8-10.8)
[2023-11-01 16:49] LABS: ALT (SGPT) 32 U/L (0-50); AST (SGOT) 37 U/L (17-59); Albumin 4.4 g/dl (3.5-5.0); Alkaline Phosphatase 73 U/L (38-126); Blood Urea Nitrogen 15 mg/dl (9-20); Calcium 9.6 mg/dl (8.4-10.2); Carbon Dioxide 25 mmol/L (22-30); Chloride 107 mmol/L (98-107); Estimated Creatinine Clearance 84 ml/min; Glucose 103 mg/dl (70-99); Potassium 4.1 mmol/L (3.5-5.1); Sodium 140 mmol/L (135-145); Total Bilirubin 0.8 mg/dl (0.2-1.3); Total Protein 7.4 g/dl (6.3-8.2); eGFR > 60.00
--- NOTE | 2023-11-01 16:51 | ED.GENMED ---
History of Present Illness
General
Chief Complaint: Cardiac Symptoms
Source: patient
Exam Limitations: none
Time Seen by Provider: 11/01/23 16:17
Nursing documentation reviewed up to this point in time: agreed with
Travel History
Have you had any contact with someone who has COVID-19?: No
Do you have any symptoms of coronavirus? Fever > 100 degrees, chills, cough, shortness of breath, sore throat, loss of taste or smell, muscle aches, or headache?: No
History of Present Illness
History of Present Illness:
68-year-old male with past medical history of hypertension, asthma, LOUISE, CAD who presents to the emergency room for evaluation of pressure sensation in his neck. Patient was notably seen in this emergency room 10/28/2023 with left-sided neck pain
triggered with exertion; was seen by cardiology and ultimately taken for cardiac catheterization which showed significant CAD requiring 2 stents in the RCA. He was discharged from the hospital on 10/30/2023 and says that he was feeling well on
discharge. He says that yesterday he started to notice intermittent episodes of similar left-sided neck pain�this time not triggered by exertion. He says that today he has been having these episodes essentially every hour that last for about a
minute or 2 at a time. He says that the sensation is identical to the exertional symptoms he was having prior to his cardiac cath. He came back to the emergency room to be assessed. He does not have any chest pain with the symptoms. Denies
shortness of breath. Denies any dizziness. Denies any nausea, vomiting, diaphoresis. He denies any sore throat and there is no pain with range of motion of his neck. He reports compliance with all medications since discharge including his
aspirin and Brilinta.
Past History
Past History
ED Past Medical History: CVA, GERD, HTN and Hypercholesterolemia
ED Past Surgical History: None
Social History
Tobacco: Non-smoker
Alcohol: None
Drug: None
Personal: Other
Living: alone
Employment: Employed
Review of Systems
Review of Systems
All Other Systems: ROS reviewed and negative except as documented in HPI and ROS
Constitutional: Denies fever or chills
EENT: Reports other (Neck pressure); Denies sore throat
Respiratory: Denies cough or trouble breathing
Cardiac: Denies chest pain or palpitations
ABD/GI: Denies abdominal pain, nausea, vomiting or diarrhea
: Denies flank pain
Musculoskeletal: Denies neck pain or back pain
Neurological: Denies dizzy or headache
Phy Exam
Physical Exam
Physical Exam:
General: Awake, alert, oriented x3; no acute distress
Head: Normocephalic, atraumatic
Eyes: Conjunctiva normal, EOMI
Throat: Airway intact, handling secretions, no tonsillar erythema or exudate
Neck: Trachea midline, no lymphadenopathy, full range of motion without pain, no reducible tenderness
Lungs: Clear to auscultation bilaterally, no wheezing, rales, rhonchi
Heart: Regular rate and rhythm, no murmurs, gallops, or rubs
Abd: Soft, non distended, nontender
Neuro: Cranial nerves grossly intact, speech fluid
Skin: no rash
Extremities: No edema in extremities, equal pulses in all extremities
Scores
Heart Failure Risk
Heart Failure Risk Score: Not Applicable
Heart Score for Chest Pain Patients
STEMI patient?: Not applicable
Withdrawal Assessment of Alcohol
Withdrawal Assessment Completed?: Not applicable
Course
Orders/Labs/Results
Orders:
Orders
11/01/23 16:12
EKG [Electrocardiogram (*1)] Urgent
Reason for Study: Chest Pain
EKG- Treatment ONCE
11/01/23 16:26
Complete Blood Count/With Diff Urgent
Comprehensive Metabolic Panel Urgent
Troponin I Urgent
11/01/23 16:40
CARDIOLOGY CONSULT Urgent
Consulting Provider: Dawit Weller
Was physician already notified: Yes
11/01/23 19:22
Troponin I Urgent
Abnormal Lab Results
11/01/23 11/01/23
16:26 19:22
Absolute Monos (auto) 0.7 H 10^3/uL
(0.1-0.6)
Monocytes % 11.3 H %
(1.7-9.3)
Glucose 103 H mg/dl
(70-99)
Troponin I 1.140 H* ng/ml 1.290 H* ng/ml
11/01/23 16:26
11/01/23 16:26
Vital Signs
Initial and Last Documented VS:
Initial Vital Signs
Temp Pulse Resp BP Pulse Ox
36.7 C 91 18 139/81 94
11/01/23 16:11 11/01/23 16:11 11/01/23 16:11 11/01/23 16:11 11/01/23 16:11
Last Documented Vital Signs
Temp Pulse Resp BP Pulse Ox
36.7 C 72 18 125/77 94
11/01/23 16:11 11/01/23 17:15 11/01/23 17:15 11/01/23 17:00 11/01/23 17:15
MDM/Problems Addressed
Differential Diagnosis Includes:
Anginal equivalent, musculoskeletal neck pain, radiculopathy
MDM/Problems Addressed:
68-year-old male presents for evaluation of left-sided neck pressure he says similar to anginal symptoms he was having prior to recent cardiac cath and stenting. Symptoms this time are nonexertional and are happening more frequently over the past
24 hours. Vital signs are normal. Exam as above. EKG shows no STEMI. Will plan to place IV check labs including a CBC and CMP. Will check troponin but anticipate elevation given recent cath. Case discussed with cardiology for consultation and
evaluation in the ER.
Labs reviewed: CBC unremarkable, CMP no clinically significant abnormalities. Initial troponin elevated to 1.14 unsurprising in the setting of recent catheterization. Case discussed with cardiology who bedside, recommended repeat troponin; if
stable or downtrending, discharge with outpatient follow up.
Repeat troponin essentially flat�discussed results with cardiology, plan to discharge they will follow-up with patient in the office. Patient is comfortable this plan, he is asymptomatic on reassessment. Spoke about return precautions all questions
answered.
Chronic conditions affecting care:
CAD
*Pulse Oximetry
Patient hypoxic: no
*EKG
Interpreted by ED Provider?: Yes
Heart Rate: 80
Rate: normal
Rhythm: sinus
[place]: left axis deviation
Interval: normal interval
QRS Pattern: left vent hypertrophy
Ischemia: other (Inferior infarct age undetermined)
*Critical Care Note
Total Time (30-74mins, 75-104mins- exclusive of procedures): Not Applicable
Data Reviewed
Review of Other/Old Records Reveals: Labs, Records, Testing and Discharge Summary
Source: patient and records
Patient Management
Discussion with other providers: [employer] (Discussed with cardiology)
ED Attending Note
-
Portions of this chart may have been created with voice recognition software.� Occasional wrong word or��sound alike� substitutions may have occurred due to the inherent limitations of voice recognition software.
Discharge Plan
Departure
Patient Disposition: Home (Routine Discharge)
Date of Disposition: 11/01/23
Time of Disposition: 20:05
Patient with high blood pressure during this ER visit?: No
Discharge Problem:
Neck pain
Instructions: Chest Pain DCA Follow Up
Prescriptions:
No Action
losartan 50 mg Tablet
50 mg PO DAILY
amlodipine 5 mg Tablet
5 mg PO DAILY
omeprazole 40 mg Capsule,Delayed Release(Dr/Ec)
40 mg PO DAILY
Tremfya 100 mg/mL Auto-Injector
100 mg SC Q8W
aspirin [Children's Aspirin] 81 mg Tablet,Chewable
81 mg PO DAILY Qty: 0 0RF
therapeutic multivitamin Tablet
1 tab PO DAILY
famotidine 20 mg Tablet
20 mg PO HS
budesonide-formoterol 80-4.5 mcg/actuation Hfa Aerosol Inhaler
2 puff INHALATION R DAILYPRN PRN (Reason: sob)
atorvastatin 40 mg tablet
40 mg PO DAILY
metoprolol succinate 25 mg Tablet Extended Release 24 Hr
12.5 mg PO QPM Qty: 30 5RF
Brilinta 90 mg Tablet
90 mg PO BID Qty: 60 5RF
nitroglycerin 0.4 mg tablet, sublingual
0.4 mg sublingual [id number] PRN (Reason: chest pain) Qty: 25 5RF
Referrals:
Yaneth Rockwell MD [Family Provider] -
Dawit Weller DO [Active] - Keep scheduled appt
Activity Restrictions/Additional Instructions:
Thank you for visiting the Emergency Department at [facility].
1. Please schedule a follow up appointment as directed. Call first thing tomorrow morning to make an appointment.
2. If indicated, please take your medications as instructed and indicated on discharge paperwork.
3. If any of your symptoms do not improve, or persist, or become more severe within 6-12 hours, please return to the emergency department for further care.
4. Please return to the emergency department if you develop a headache, neck pain/stiffness, fever greater than 100.4F, chest pain, shortness of breath, persistent nausea, vomiting, slurred speech, difficulty walking, numbness/tingling, weakness,
signs of infection or any other symptoms that are worrisome to you.
Please call [phone] if you have any questions.
Interventions
Interventions:
*Risk Screen - Suicide Last Done: 11/01/23 16:30
*General Assessment Last Done: 11/01/23 16:30
*Neglect/Abuse Screening Last Done: 11/01/23 16:30
ED- Fall Risk Assessment Last Done: 11/01/23 16:30
*ED COVID-19 Vaccine History Last Done: 11/01/23 16:30
ED- Pulmonary Assessment Last Done: 11/01/23 16:30
ED- Cardiac Assessment Last Done: 11/01/23 16:30
Discharge Date and Time
Print Language: POLISH
[2023-11-01 17:00] VITALS: BP 125/77
--- NOTE | 2023-11-01 17:14 | CON.CAR ---
Consultation
Consultation Request
Date/Time Consultation Requested: November 01 2023
Date/Time Consultation Performed: November 01 2023
Requesting Provider: Dr Osborne
Performing Provider: Dr Weller
Reason for Consultation: Chest pain
Medical History
-
Chief Complaint: Chest pain
History of Present Illness:
.
Luis A has past medical history including recent CVA, PFO, hypertension, hyperlipidemia, family history of CAD and underwent recent PCI and stent to the RCA X2 October 28, 2023 after a 2-week period of exertional chest pain and a peak troponin of 5.3.
His procedure was complicated by a no reflow state in the mid to distal LAD resulting in chest pain and ST elevation periprocedurally. He was subsequently weaned off IV nitroglycerin and symptoms resolved. Echo showed preserved LV function with
no significant wall motion abnormalities. He was recommended dual antiplatelet therapy with aspirin and Brilinta for at least 1 year. He was to continue losartan and amlodipine. He had some transient bradycardia but is tolerating beta-fanny.
LDL was 49 and he was continued on his high intensity Lipitor at 40 mg daily. He was recommended outpatient cardiac follow-up.
Over the last 2 days he noticed some intermittent chest and throat discomfort that was nonexertional. He was able to exert himself without symptoms. He concern over his symptoms and admitted to some hyper awareness of his chest symptoms. He came
to the emergency room for evaluation. His initial troponin was 1.1. EKG was unchanged. His vitals on presentation remained stable. Cardiology was consulted by emergency room for evaluation of patient symptoms.
Past medical history:
Recent NSTEMI, peak Troponin 5.32 with PCI to RCA October 28, 2023
Periprocedural STEMI
CAD
s/p 3.5 mm and 3.5 mm Xience to mid to distal RCA 10/28/23
residual 50% LAD lesion by cath 10/28/23
Admission for CVA and PFO 03/25/23 until 03/30/23
Hx CVA with embolic appearing posterior circulation ischemic infarction
PFO, possible ASD noted on transthoracic echocardiogram 03/26/23
Hx 3.8mm saccular aneurysm arising from the left side of the distal basilar artery
Hypertension
Dyslipidemia
LOUISE/CPAP
History of migraine headache
Family history of DVT/PE in siblings
LINQ placed Mar 2024
Echo 03/26/23: EF 55-60%, normal diastolic function, normal RV size and function, mild aortic regurgitation, evidence of right to left shunt with agitated saline contrast consistent with PFO/ASD
Echo 10/28/23: EF 55 to 60%, no regional wall motion abnormality
Echo 10/29/23: EF 65 to 70%, no regional wall motion abnormality, no MR, mild aortic regurgitation
Social History
Tobacco: Non-Smoker
Alcohol: Occasional (He states he has had no alcohol for the last 3 months)
Drug: None
Living: Alone
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
Family History
Family History: CAD (A brother had PCI as well as his father in their 60s.)
Allergies / Home Medications
Allergy/AdvReac Type Severity Reaction Status Date / Time
ramipril [From Altace] Allergy Unknown Verified 10/28/23 09:00
Sulfa (Sulfonamide Allergy Unknown Verified 10/28/23 09:00
Antibiotics)
�Medication �Instructions �Recorded �Confirmed �Type
amlodipine 5 mg tablet 5 mg PO DAILY Blood Pressure 03/25/23 10/28/23 History
guselkumab 100 mg/mL subcutaneous 100 mg SC Q8W PSORIASIS 03/25/23 10/28/23 History
auto-injector (Tremfya)
losartan 50 mg tablet 50 mg PO DAILY Blood Pressure 03/25/23 10/28/23 History
omeprazole 40 mg capsule,delayed 40 mg PO DAILY High Cholesterol 03/25/23 10/28/23 History
release
aspirin 81 mg chewable tablet 81 mg PO DAILY #0 tabs 03/30/23 10/28/23 Rx
(Children's Aspirin)
atorvastatin 40 mg tablet 40 mg PO DAILY 10/28/23 10/28/23 History
budesonide-formoterol HFA 80 2 puff inhalation R DAILYPRN PRN 10/28/23 10/28/23 History
mcg-4.5 mcg/actuation aerosol sob
inhaler
famotidine 20 mg tablet 20 mg PO HS 10/28/23 10/28/23 History
therapeutic multivitamin 1 tab PO DAILY 10/28/23 10/28/23 History
metoprolol succinate 25 mg 12.5 mg (1/2 x 25 mg) PO QPM #30 10/29/23 Rx
tablet,extended release 24 hr tabs
nitroglycerin 0.4 mg sublingual 0.4 mg sublingual [id number] PRN 10/29/23 Rx
tablet chest pain #25 tabs
ticagrelor 90 mg tablet (Brilinta) 90 mg PO BID #60 tabs 10/29/23 Rx
Review of Systems
-
History Source: Patient
All other systems: Negative unless noted
Cardiac: Chest Pain
Physical Exam
Vital Signs
Temp Pulse Resp BP Pulse Ox
98.0 F 78 24 143/83 93
11/01/23 16:11 11/01/23 16:30 11/01/23 16:30 11/01/23 16:19 11/01/23 16:30
Physical examination:
General: No acute distress, AAOX3
Neck: Negative JVD
Heart: Regular, Negative S3 positive S1/S2, Negative S4, No murmur
Lungs: CTA b/l, negative wheezes/rales/rhonchi
Abd: Positive BS, NT/ND, neg rebound/rigidity/guarding
Ext: Negative cyanosis/clubbing/edema
Neuro: nonfocal
�
�
��
�
�
��
�
Lab Results
11/01/23 16:26
11/01/23 16:26
Troponin I 1.140 ng/ml H* 11/01/23 16:26
Impression / Plan
-
.
PCP: Dr. Rockwell
Cardiology: Dr. Quintanilla
Impression:
Atypical chest pain, ER November 01 2023
Recent NSTEMI, peak Troponin 5.32 with PCI to RCA
Periprocedural STEMI
CAD
s/p 3.5 mm and 3.5 mm Xience to mid to distal RCA 10/28/23
residual 50% LAD lesion by cath 10/28/23
Admission for CVA and PFO 03/25/23 until 03/30/23
Hx CVA with embolic appearing posterior circulation ischemic infarction
PFO, possible ASD noted on transthoracic echocardiogram 03/26/23
Hx 3.8mm saccular aneurysm arising from the left side of the distal basilar artery
Hypertension
Dyslipidemia
LOUISE/CPAP
History of migraine headache
Family history of DVT/PE in siblings and CAD
LINQ placed Mar 2023
Echo 03/26/23: EF 55-60%, normal diastolic function, normal RV size and function, mild aortic regurgitation, evidence of right to left shunt with agitated saline contrast consistent with PFO/ASD
Echo 10/28/23: EF 55 to 60%, no regional wall motion abnormality
Echo 10/29/23: EF 65 to 70%, no regional wall motion abnormality, no MR, mild aortic regurgitation
Plan:
Reviewed his recent echo and cardiac catheterization with him as well as his recent admission.
His symptoms of chest pain are atypical and nonexertional. They are less than his previous symptoms. He admits to some anxiety over his recent procedure and some hyper awareness.
Troponin is lower at 1.1, than his discharge troponin of 2.8 from October 30, 2023.
His EKG is without change. His vitals are stable including normal heart rate and blood pressure.
Discussed options and he was agreeable to checking a second troponin. If this is stable, he will follow-up as an outpatient as previously scheduled.
He will continue his current medications including beta-fanny, dual antiplatelet therapy with aspirin and Brilinta.
LDL was recently 49 and outpatient dose of atorvastatin 40mg continued
Discussed with the emergency room.
Outpatient cardiac follow-up as already arranged.
Data Reviewed
-
EKG: Tracing Personally Visualized and interpreted
Radiology: Report Reviewed by me
Labs: Labs Reviewed by me
Old Records: Reviewed
[2023-11-01 18:00] VITALS: BP 130/81
[2023-11-01 19:00] VITALS: BP 127/79
[2023-11-01 20:00] VITALS: BP 145/76
== END 2023-11-01 20:23 | disposition home or self-care (01) ==
LOC: EMR 16:09
PROVIDERS: CONSULT PHYSICIAN Nuclear Medicine Nuclear Cardiology; EMERGENCY PHYSICIAN Emergency Medicine; FAMILY PHYSICIAN Emergency Medicine
DX: M54.2 Cervicalgia (principal); R07.89 Other chest pain; I10 Essential (primary) hypertension; G47.33 Obstructive sleep apnea (adult) (pediatric); J45.909 Unspecified asthma, uncomplicated; I25.10 Atherosclerotic heart disease of native coronary artery without angina pectoris; E78.00 Pure hypercholesterolemia, unspecified; K21.9 Gastro-esophageal reflux disease without esophagitis; I25.2 Old myocardial infarction; Z79.82 Long term (current) use of aspirin; Z79.899 Other long term (current) drug therapy; Z95.5 Presence of coronary angioplasty implant and graft; Z86.73 Personal history of transient ischemic attack (TIA), and cerebral infarction without residual deficits; Z88.2 Allergy status to sulfonamides; Z88.8 Allergy status to other drugs, medicaments and biological substances
CPT/HCPCS: 99283; 80053; 84484; 85025; 93005

== ENCOUNTER 2023-12-15 08:31 | Outpatient (RCR) | payer OTHER, SELFPAY | END 2023-12-15 23:59 | disposition home or self-care (01) | LOC: CRHB 08:31 | PROVIDERS: ATTENDING PHYSICIAN Internal Medicine Interventional Cardiology | DX: I25.10 Atherosclerotic heart disease of native coronary artery without angina pectoris (principal); Z95.5 Presence of coronary angioplasty implant and graft; I25.2 Old myocardial infarction | CPT/HCPCS: G0422; G0423 ==

== ENCOUNTER 2023-12-26 13:57 | Emergency (ER) | payer OTHER, SELFPAY ==
[2023-12-26 13:58] VITALS: BP 160/87
[2023-12-26 14:23] LABS: % Eosinophils 2.7 % (0-6); % Immature Granulocytes 0.4 % (0-0.5); % Lymphocytes 30.3 % (20.5-51.1); % Monocytes 12.4 % (1.7-9.3); % Neutrophils 53.2 % (42.2-75.2); Absolute Basophils 0.1 10^3/uL (0-0.2); Absolute Eosinophils 0.1 10^3/uL (0-0.7); Absolute Lymphocytes 1.5 10^3/uL (1.2-3.4); Absolute Monocytes 0.6 10^3/uL (0.1-0.6); Absolute Neutrophils 2.6 10^3/uL (1.4-6.5); Hematocrit 41.7 % (39.0-52.0); Hemoglobin 14.9 g/dL (13.0-18.0); Mean Corp Hgb Conc. 35.7 g/dL (33.0-37.0); Mean Corpuscular Hgb 30.5 pg (27.0-31.0); Mean Corpuscular Volume 85.3 fL (80.0-94.0); Nucleated Red Blood Cells % 0 % (-); Platelet Count 207 10^3/uL (130-400); Red Blood Cell Count 4.89 10^6/uL (4.70-6.10); White Blood Cell Count 4.9 10^3/uL (4.8-10.8)
[2023-12-26 14:31] LABS: INR 1.18; PT 14.8 Sec (11.4-14.6)
[2023-12-26 14:42] LABS: ALT (SGPT) 40 U/L (0-50); AST (SGOT) 35 U/L (17-59); Albumin 4.5 g/dl (3.5-5.0); Alkaline Phosphatase 67 U/L (38-126); Blood Urea Nitrogen 16 mg/dl (9-20); Calcium 9.8 mg/dl (8.4-10.2); Carbon Dioxide 25 mmol/L (22-30); Chloride 108 mmol/L (98-107); Glucose 97 mg/dl (70-99); Potassium 4.5 mmol/L (3.5-5.1); Sodium 141 mmol/L (135-145); Total Bilirubin 0.5 mg/dl (0.2-1.3); Total Protein 7.1 g/dl (6.3-8.2); Troponin I 0.019 ng/ml; eGFR > 60.00
--- NOTE | 2023-12-26 15:48 | ED.GENMED ---
History of Present Illness
<LEON Jones - Last Filed: 12/28/23 02:39>
General
Chief Complaint: Breathing Problem
Source: patient
Exam Limitations: none
Time Seen by Provider: 12/26/23 14:51
Nursing documentation reviewed up to this point in time: agreed with
History of Present Illness
History of Present Illness:
Patient is a 68-year-old male with history of cardiac stent after NSTEMI ( October 2023) hyperlipidemia hypertension stroke presents to the ER for evaluation. Patient reports he is very active and still in cardiac rehab. He also swims. He swam 1200
m on 3 days ago and felt great he also did cardiac rehab on Wednesday and felt great. He walked 3 miles yesterday and also cut the grass and felt fine but he was walking into a send around 12:30 PM and felt short of breath which is not like
him. Today he also noticed that he felt short winded and short of breath again this morning after getting a shower.
He had no associated cp.
Past History
<LEON Jones - Last Filed: 12/28/23 02:39>
Past History
ED Past Medical History: CVA, GERD, HTN and Hypercholesterolemia
ED Past Surgical History: None
Social History
Tobacco: Non-smoker
Alcohol: None
Drug: None
Personal: Other
Living: alone
Employment: Employed
Review of Systems
<LEON Jones - Last Filed: 12/28/23 02:39>
Review of Systems
Allergies reviewed?: Yes
All Other Systems: ROS reviewed and negative except as documented in HPI and ROS
Constitutional: Reports no symptoms; Denies fever, fatigue or chills
EENT: Reports no symptoms
Respiratory: Reports trouble breathing
Cardiac: Reports no symptoms
ABD/GI: Reports no symptoms
: Reports no symptoms
Musculoskeletal: Reports no symptoms
Skin: Reports no symptoms
Neurological: Reports no symptoms
Psychiatric: Reports no symptoms
Phy Exam
<LEON Jones - Last Filed: 12/28/23 02:39>
General Physical Exam
General Presentation: no apparent distress
General age: appears stated age
General Skin: warm and dry
General Habitus: normal
General Mental: alert
General Hydration: appears well hydrated
Cardiovascular Exam
Cardiovascular Exam: regular rate/rhythm, no murmur and normal peripheral pulses
Pulmonary Exam
Pulmonary Exam: lungs clear and no respiratory distress
Neurological Exam
Neurological Exam: alert and oriented x3
Musculoskeletal Exam
Musculoskeletal Exam: full ROM
Skin Exam
Skin Exam: normal color and warm/dry
Psychiatric Exam
Psychiatric Exam: normal mood/affect
Scores
<LEON Jones - Last Filed: 12/28/23 02:39>
Heart Failure Risk
Heart Failure Risk Score: Not Applicable
Course
<LEON Jones - Last Filed: 12/28/23 02:39>
Orders/Labs/Results
Orders:
Orders
12/26/23 14:03
Electrocardiogram (*1) Urgent
Reason for Study: Shortness of Breath
12/26/23 14:04
EKG- Treatment ONCE
12/26/23 14:12
Complete Blood Count/With Diff Urgent
Comprehensive Metabolic Panel Urgent
NT-proBNP Urgent
Comment: ADD ON
Prothrombin Time Urgent
Troponin I Urgent
12/26/23 16:15
Chest [CR Chest - 2 Views ] Urgent
Comment:
Reason For Exam: sob
12/26/23 16:16
Add On- LAB Urgent
Tests Added?: cardiac bnp
12/26/23 16:59
CT Chest Pe Study Urgent
Comment:
Reason For Exam: RODNEY
12/26/23 18:19
Troponin I Urgent
Abnormal Lab Results
12/26/23
14:12
Monocytes % 12.4 H %
(1.7-9.3)
PT 14.8 H Sec
(11.4-14.6)
Chloride 108 H mmol/L
(98-107)
12/26/23 14:12
12/26/23 14:12
Vital Signs
Initial and Last Documented VS:
Initial Vital Signs
Temp Pulse Resp BP Pulse Ox
97.6 F 68 18 160/87 96
12/26/23 13:58 12/26/23 13:58 12/26/23 13:58 12/26/23 13:58 12/26/23 13:58
Last Documented Vital Signs
Temp Pulse Resp BP Pulse Ox
97.6 F 60 14 128/80 98
12/26/23 13:58 12/26/23 19:48 12/26/23 19:48 12/26/23 19:48 12/26/23 18:00
<Sarthak Schwartz MD - Last Filed: 12/26/23 19:45>
Orders/Labs/Results
Orders:
Orders
12/26/23 14:03
Electrocardiogram (*1) Urgent
Reason for Study: Shortness of Breath
12/26/23 14:04
EKG- Treatment ONCE
12/26/23 14:12
Complete Blood Count/With Diff Urgent
Comprehensive Metabolic Panel Urgent
NT-proBNP Urgent
Comment: ADD ON
Prothrombin Time Urgent
Troponin I Urgent
12/26/23 16:15
Chest [CR Chest - 2 Views ] Urgent
Comment:
Reason For Exam: sob
12/26/23 16:16
Add On- LAB Urgent
Tests Added?: cardiac bnp
12/26/23 16:59
CT Chest Pe Study Urgent
Comment:
Reason For Exam: RODNEY
12/26/23 18:19
Troponin I Urgent
Abnormal Lab Results
12/26/23
14:12
Monocytes % 12.4 H %
(1.7-9.3)
PT 14.8 H Sec
(11.4-14.6)
Chloride 108 H mmol/L
(98-107)
12/26/23 14:12
12/26/23 14:12
Vital Signs
Initial and Last Documented VS:
Initial Vital Signs
Temp Pulse Resp BP Pulse Ox
97.6 F 68 18 160/87 96
12/26/23 13:58 12/26/23 13:58 12/26/23 13:58 12/26/23 13:58 12/26/23 13:58
Last Documented Vital Signs
Temp Pulse Resp BP Pulse Ox
97.6 F 60 14 128/80 98
12/26/23 13:58 12/26/23 19:48 12/26/23 19:48 12/26/23 19:48 12/26/23 18:00
<LEON Jones - Last Filed: 12/28/23 02:39>
MDM/Problems Addressed
MDM/Problems Addressed:
Patient is a 68-year-old male with history of recent cardiac stents October 2023 presently on Brilinta presents today for evaluation of shortness of breath. Patient reports he is very active as documented he swims and walks. He was sitting on
and felt fine he did cardiac rehab on Wednesday and felt fine. He was walking in town leisurely yesterday and was short of breath afterward around 12:30 PM no associated chest pain. He again was short of breath today just after showering.
Patient presents today awake alert no acute distress nonhypoxic lungs are clear. Normal sinus rhythm heart rate 65 on EKG . trop is 0.019 bnp low at 55.
Case reviewed with ED physician will order CT PE study.
1814: Will re-check trop. d/c w/ global implementation manager cariologist. discussed with cardiology SOB can be a side effect of Brillanta . willcheck CT /repeat trop and if neg will plan for discharge home with outpatient follow-up.
1819: CARe of pt at this time transferred to DR Schwartz
<LEON Jones - Last Filed: 12/28/23 02:39>
*Critical Care Note
Total Time (30-74mins, 75-104mins- exclusive of procedures): Not Applicable
<Sarthak Schwartz MD - Last Filed: 12/26/23 19:45>
Update Note
Update Note:
CTA: no PE. Per signout, patient will be discharged home for an outpatient evaluation. Cardiology on-call, , made aware of findings.
ED Attending Note
<LEON Jones - Last Filed: 12/28/23 02:39>
-
Portions of this chart may have been created with voice recognition software.� Occasional wrong word or��sound alike� substitutions may have occurred due to the inherent limitations of voice recognition software.
Discharge Plan
Departure
Patient Disposition: Home (Routine Discharge)
Date of Disposition: 12/26/23
Time of Disposition: 19:44
Patient with high blood pressure during this ER visit?: Yes
Condition: Good
Discharge Problem:
Dyspnea
Instructions: Shortness of Breath (Dyspnea) (DC)
Prescriptions:
No Action
losartan 50 mg Tablet
50 mg PO DAILY
amlodipine 5 mg Tablet
5 mg PO DAILY
omeprazole 40 mg Capsule,Delayed Release(Dr/Ec)
40 mg PO DAILY
Tremfya 100 mg/mL Auto-Injector
100 mg SC Q8W
aspirin [Children's Aspirin] 81 mg Tablet,Chewable
81 mg PO DAILY Qty: 0 0RF
therapeutic multivitamin Tablet
1 tab PO DAILY
famotidine 20 mg Tablet
20 mg PO HS
budesonide-formoterol 80-4.5 mcg/actuation Hfa Aerosol Inhaler
2 puff INHALATION R DAILYPRN PRN (Reason: sob)
atorvastatin 40 mg tablet
40 mg PO DAILY
metoprolol succinate 25 mg Tablet Extended Release 24 Hr
12.5 mg PO QPM Qty: 30 5RF
Brilinta 90 mg Tablet
90 mg PO BID Qty: 60 5RF
nitroglycerin 0.4 mg tablet, sublingual
0.4 mg sublingual [id number] PRN (Reason: chest pain) Qty: 25 5RF
Referrals:
Yaneth Rockwell MD [Family Provider] -
Activity Restrictions/Additional Instructions:
As discussed, please follow up with your primary care physician and/or live in housekeeper nanny for further evaluation and treatment.
Interventions
Interventions:
*Risk Screen - Suicide Last Done: 12/26/23 13:58
*General Assessment Last Done: 12/26/23 13:58
*Neglect/Abuse Screening Last Done: 12/26/23 13:58
ED- Fall Risk Assessment Last Done: 12/26/23 18:00
*Nursing Disposition Last Done: 12/26/23 19:56
ED- Cardiac Assessment Last Done: 12/26/23 18:00
ED- Pulmonary Assessment Last Done: 12/26/23 18:00
Discharge Date and Time
Discharge Date/Time: 12/26/23 19:56
Print Language: [place]LAND[place]
[2023-12-26 19:04] LABS: Troponin I < 0.012 ng/ml
[2023-12-26 19:48] VITALS: BP 128/80
== END 2023-12-26 19:56 | disposition home or self-care (01) ==
LOC: EMR 13:57
PROVIDERS: Emergency Medicine; Nurse Practitioner; EMERGENCY PHYSICIAN Emergency Medicine; FAMILY PHYSICIAN Emergency Medicine
DX: R06.09 Other forms of dyspnea (principal); K21.9 Gastro-esophageal reflux disease without esophagitis; I10 Essential (primary) hypertension; E78.00 Pure hypercholesterolemia, unspecified; I25.10 Atherosclerotic heart disease of native coronary artery without angina pectoris; J45.909 Unspecified asthma, uncomplicated; M19.90 Unspecified osteoarthritis, unspecified site; I25.2 Old myocardial infarction; Z95.5 Presence of coronary angioplasty implant and graft; Z85.828 Personal history of other malignant neoplasm of skin; Z86.73 Personal history of transient ischemic attack (TIA), and cerebral infarction without residual deficits; Z79.02 Long term (current) use of antithrombotics/antiplatelets; Z79.82 Long term (current) use of aspirin; Z88.2 Allergy status to sulfonamides; Z88.8 Allergy status to other drugs, medicaments and biological substances
CPT/HCPCS: 99285; 71046; 71275; 80053; 83880; 84484; 85025; 85610; 93005; Q9967

== ENCOUNTER 2024-01-12 08:14 | Outpatient (RCR) | payer OTHER, SELFPAY | END 2024-01-12 23:59 | disposition home or self-care (01) | LOC: CRHB 08:14 | PROVIDERS: ATTENDING PHYSICIAN Internal Medicine Interventional Cardiology; FAMILY PHYSICIAN Emergency Medicine | DX: I25.10 Atherosclerotic heart disease of native coronary artery without angina pectoris (principal); I25.2 Old myocardial infarction; Z95.5 Presence of coronary angioplasty implant and graft | CPT/HCPCS: G0422; G0423 ==

== ENCOUNTER → 2024-01-31 07:17 | Outpatient (REF) | payer OTHER, SELFPAY | LOC: RCS 07:17 | PROVIDERS: ATTENDING PHYSICIAN Internal Medicine Cardiovascular Disease; FAMILY PHYSICIAN Emergency Medicine | DX: R06.02 Shortness of breath (principal) | CPT/HCPCS: 93306 ==

== ENCOUNTER 2024-02-14 09:03 | Outpatient (RCR) | payer OTHER, SELFPAY | END 2024-02-14 23:59 | disposition home or self-care (01) | LOC: CRHB 09:03 | PROVIDERS: ATTENDING PHYSICIAN Internal Medicine Interventional Cardiology; FAMILY PHYSICIAN Emergency Medicine | DX: I25.10 Atherosclerotic heart disease of native coronary artery without angina pectoris (principal); Z95.5 Presence of coronary angioplasty implant and graft; I25.2 Old myocardial infarction | CPT/HCPCS: G0422; G0423 ==

== ENCOUNTER 2024-03-13 09:29 | Outpatient (RCR) | payer OTHER, SELFPAY | END 2024-03-13 09:30 | disposition home or self-care (01) | LOC: CRHB 09:29 | PROVIDERS: ATTENDING PHYSICIAN Internal Medicine Interventional Cardiology; FAMILY PHYSICIAN Emergency Medicine | DX: I25.10 Atherosclerotic heart disease of native coronary artery without angina pectoris (principal); Z95.5 Presence of coronary angioplasty implant and graft; I25.2 Old myocardial infarction | CPT/HCPCS: G0422; G0423 ==

== ENCOUNTER → 2024-05-01 14:02 | Outpatient (REF) | payer OTHER, SELFPAY | LOC: HWRAD 14:02 | PROVIDERS: ATTENDING PHYSICIAN Emergency Medicine | DX: I72.2 Aneurysm of renal artery (principal) | CPT/HCPCS: 93975 ==

== ENCOUNTER 2024-07-07 11:33 | Emergency (ER) | payer OTHER, SELFPAY ==
[2024-07-07 11:41] VITALS: BP 144/94
--- NOTE | 2024-07-07 13:13 | EDRN ---
Adela RODRIGUEZ in room w/ pt at this time.
--- NOTE | 2024-07-07 13:21 | ED.CVA ---
History of Present Illness
General
Chief Complaint: CVA/TIA Symptoms
Source: patient
Time Seen by Provider: 07/07/24 13:05
Onset of Stroke Symptoms
Onset of symptoms known: No
Time pt last seen normal is known: No
History of Present Illness
History of Present Illness:
69 year old male with history of CAD, CVA on aspirin, brilinta and statin chest presents after having symptoms of subtle headache yesterday with cognitive dysfunction. He states his thoughts were not aligning. He could not remember certain things.
This started late morning and lasted into the early afternoon yesterday. Symptoms went away. There is no dizziness or vision change. No numbness or weakness. There has been no fevers or chills. He states his headache and and clarity of
thoughts has since resolved. He spoke with the family doctor's office today and was sent in for evaluation. He had a stroke in March 2023 with similar symptoms. Currently he has no complaints. All the symptoms have completely resolved. No
chest pain. No recent fever. No other complaints at this time
Past History
Past History
ED Past Medical History: CVA, GERD, HTN and Hypercholesterolemia
ED Past Surgical History: None
Social History
Tobacco: Non-smoker
Alcohol: None
Drug: None
Personal: Other
Living: alone
Employment: Employed
Phy Exam
Physical Exam
Physical Exam:
General: Well-appearing male no acute respiratory distress
HEENT: Normocephalic atraumatic pupils equal round reactive to light extraocular's are intact
Heart: Regular rate and rhythm. Lungs: Clear no wheeze
neurologic exam: Alert and oriented no facial asymmetry finger-nose [id number] intact. No drift on exam no aphasia or dysarthria
Skin is warm no rash
Course
Orders/Labs/Results
Orders:
Orders
07/07/24 11:45
CT Head W/o Iv Contrast Urgent
Comment: mild left facial droop
Reason For Exam: CUTLER and memory loss yesterday
Vital Signs
Initial and Last Documented VS:
Initial Vital Signs
Temp Pulse Resp BP Pulse Ox
98.0 F 74 16 144/94 98
07/07/24 11:41 07/07/24 11:41 07/07/24 11:41 07/07/24 11:41 07/07/24 11:41
Last Documented Vital Signs
Temp Pulse Resp BP Pulse Ox
98.0 F 74 16 144/94 98
07/07/24 11:41 07/07/24 11:41 07/07/24 11:41 07/07/24 11:41 07/07/24 11:41
MDM/Problems Addressed
Differential Diagnosis Includes:
Patient with headache and cognitive dysfunction yesterday and now symptoms have completely resolved. Differential could include migraine versus intracranial hemorrhage versus CVA versus viral illness
Normal neurologic exam currently with asymptomatic presentation. CT of the head was ordered through triage which shows no acute findings but does show old lacunar infarcts.
*Critical Care Note
Total Time (30-74mins, 75-104mins- exclusive of procedures): Not Applicable
Update Note
Update Note:
Reviewed prior records. Saw MRI from March 2023 which demonstrated multiple acute ischemic infarcts. He had another MRI in August 2023 which was negative. He is currently on aspirin and statin and Brilinta. No current symptoms with a normal
neurologic exam. Discussed with emergency room attending. At this point no indication for any further intervention given resolution of symptoms and normal exam. Advise follow-up with family doctor. Return precautions are given. Stable for
discharge
ED Attending Note
-
Portions of this chart may have been created with voice recognition software.� Occasional wrong word or��sound alike� substitutions may have occurred due to the inherent limitations of voice recognition software.
Discharge Plan
Departure
Patient Disposition: Home (Routine Discharge)
Date of Disposition: 07/07/24
Time of Disposition: 13:48
Patient with high blood pressure during this ER visit?: No
Discharge Problem:
History of CVA (cerebrovascular accident)
Instructions: Delirium (Confusion) (DC)
Prescriptions:
No Action
losartan 50 mg Tablet
50 mg PO DAILY
amlodipine 5 mg Tablet
5 mg PO DAILY
omeprazole 40 mg Capsule,Delayed Release(Dr/Ec)
40 mg PO DAILY
Tremfya 100 mg/mL Auto-Injector
100 mg SC Q8W
aspirin [Children's Aspirin] 81 mg Tablet,Chewable
81 mg PO DAILY Qty: 0 0RF
therapeutic multivitamin Tablet
1 tab PO DAILY
famotidine 20 mg Tablet
20 mg PO HS
budesonide-formoterol 80-4.5 mcg/actuation Hfa Aerosol Inhaler
2 puff INHALATION R DAILYPRN PRN (Reason: sob)
atorvastatin 40 mg tablet
40 mg PO DAILY
metoprolol succinate 25 mg Tablet Extended Release 24 Hr
12.5 mg PO QPM Qty: 30 5RF
Brilinta 90 mg Tablet
90 mg PO BID Qty: 60 5RF
nitroglycerin 0.4 mg tablet, sublingual
0.4 mg sublingual [id number] PRN (Reason: chest pain) Qty: 25 5RF
Referrals:
Yaneth Rockwell MD [Family Provider] -
Activity Restrictions/Additional Instructions:
Please return here for any worsening symptoms otherwise continue to follow-up with your doctor.
Interventions
Interventions:
*Risk Screen - Suicide Last Done: 07/07/24 11:41
*Neglect/Abuse Screening Last Done: 07/07/24 11:41
Discharge Date and Time
Print Language: AZERI
--- NOTE | 2024-07-07 13:52 | EDRN ---
Pt states he had migraine headache and nausea symptoms and 'jumbled' thinking, could not follow his thoughts. Lasted for 2 hours yesterday. No symptoms today.Pt called his PCP and was advised to be seen here. Pt for prior CVA had same headache
symtpoms.
[2024-07-07 13:54] VITALS: BMI 26.5
[2024-07-07 13:57] VITALS: BP 125/63
== END 2024-07-07 13:59 | disposition home or self-care (01) ==
LOC: EMR 11:33
PROVIDERS: EMERGENCY PHYSICIAN Emergency Medicine; FAMILY PHYSICIAN Emergency Medicine
DX: Z86.73 Personal history of transient ischemic attack (TIA), and cerebral infarction without residual deficits (principal); R51.9 Headache, unspecified; R41.89 Other symptoms and signs involving cognitive functions and awareness
CPT/HCPCS: 99284; 70450

== ENCOUNTER → 2024-09-07 13:05 | Outpatient (REF) | payer OTHER, SELFPAY | LOC: PAVMRI 13:05 | PROVIDERS: ATTENDING PHYSICIAN Psychiatry & Neurology Neurology; FAMILY PHYSICIAN Emergency Medicine | DX: I63.9 Cerebral infarction, unspecified (principal); I72.5 Aneurysm of other precerebral arteries | CPT/HCPCS: 70549; 70551; A9585 ==

== ENCOUNTER 2024-11-14 11:03 | Emergency (ER) | payer OTHER, SELFPAY ==
[2024-11-14 11:11] VITALS: BP 133/77
[2024-11-14 12:36] VITALS: BMI 27.8
[2024-11-14 12:44] LABS: Hematocrit 42.2 % (39.0-52.0); Hemoglobin 14.6 g/dL (13.0-18.0); Mean Corp Hgb Conc. 34.6 g/dL (33.0-37.0); Mean Corpuscular Volume 88.5 fL (80.0-94.0); Nucleated Red Blood Cells % 0 % (-); Platelet Count 193 10^3/uL (130-400); Red Cell Dist. Width 12.0 % (11.5-14.5)
[2024-11-14 13:21] LABS: Troponin I < 0.012 ng/ml
--- NOTE | 2024-11-14 13:33 | ED.GENMED ---
History of Present Illness
<Morenita Guzman PA-C - Last Filed: 11/16/24 09:09>
General
Chief Complaint: Fainting Sensation
Source: patient
Exam Limitations: none
Time Seen by Provider: 11/14/24 12:11
Nursing documentation reviewed up to this point in time: agreed with
History of Present Illness
History of Present Illness:
69 y/o M with h/o CAD with stents 2 RCA 10/2023
loop recorder pfrevious CVA
no h/o afib
off brillinta
here with exertional near syncope x 2 days (once 3 days ago and once today)
he is very active, exercises regularly
can swim 30 minutes which he did 3 days ago but then had episode of near syncope with chest pressure while outside at an art show. he drank water and sat down and it passed.
he was ok the following 2 days until today
he ate breakfast and swam this morning
showered
went home and was going to walk to get coffee around 10 am and started feeling same feeling: chest pressure with mild sob and like hew as goign to faint
he sat down on a bench and it seemed to get better; then he got up to try again and felt like he was goign to pass out so he called friend to pick him up
now he feels himelf
no fever/cjills, cough, vomitig, diarrhea, abd pain, h/o DVT/PE
Past History
<Morenita Guzman PA-C - Last Filed: 11/16/24 09:09>
Past History
ED Past Medical History: CVA, GERD, HTN and Hypercholesterolemia
ED Past Surgical History: None
Social History
Tobacco: Non-smoker
Alcohol: None
Drug: None
Personal: Other
Living: alone
Employment: Employed
Review of Systems
<Morenita Guzman PA-C - Last Filed: 11/16/24 09:09>
Review of Systems
Allergies reviewed?: Yes
All Other Systems: Not applicable
Phy Exam
<Morenita Guzman PA-C - Last Filed: 11/16/24 09:09>
Physical Exam
Physical Exam:
GENERAL: Alert , in no apparent distress
EYE: pupils equal and reactive
NECK: Supple
ENT: o/p clr, mmm.
CARDIAC: rate normal, having ex tra beats PACs; .no edema, no signfiicant murmur aprpeciated;
LUNGS: Clear breath sounds bilaterally, no acute respiratory distress, no wheezes/rales/rhonchi
ABDOMEN: Soft, without focal tenderness, no r/g, no cvat, normal bowel sounds
NEUROLOGICAL: Alert and oriented, no focal neuro deficits
SKIN: Warm and dry, skin intact.
MUSCULOSKELETAL: No edema, well perfused. neg kain's sign
PSYCH: Normal and appropriate interaction.
Course
<Morenita Guzman PA-C - Last Filed: 11/16/24 09:09>
Orders/Labs/Results
Orders:
Orders
11/14/24 11:27
Electrocardiogram (*1) Urgent
Reason for Study: Vertigo / Dizzy
EKG- Treatment ONCE
11/14/24 12:35
BNP [NT-proBNP] Urgent
Complete Blood Count/With Diff Urgent
Comprehensive Metabolic Panel Urgent
Troponin I Urgent
11/14/24 13:59
Orthostatic VS- Treatment ONCE
11/14/24 14:37
0.9% Sodium Chloride 500 ml [Nss] 500 ml IV BOLUS
11/14/24 14:55
Echo 2D MMode Color/Doppler Urgent
Reason for Study: CP, lightheadedness
11/14/24 16:02
Troponin I Urgent
Abnormal Lab Results
11/14/24
12:35
Monocytes % 10.1 H %
(1.7-9.3)
Chloride 110 H mmol/L
(98-107)
Glucose 135 H mg/dl
(70-99)
11/14/24 12:35
11/14/24 12:35
Vital Signs
Initial and Last Documented VS:
Initial Vital Signs
Temp Pulse Resp BP Pulse Ox
36.7 C 75 18 133/77 97
11/14/24 11:11 11/14/24 11:11 11/14/24 11:11 11/14/24 11:11 11/14/24 11:11
Last Documented Vital Signs
Temp Pulse Resp BP Pulse Ox
36.7 C 70 20 123/81 98
11/14/24 11:11 11/14/24 17:45 11/14/24 17:45 11/14/24 15:00 11/14/24 17:45
<Damion Flanagan MD - Last Filed: 11/14/24 17:44>
Orders/Labs/Results
Orders:
Orders
11/14/24 11:27
Electrocardiogram (*1) Urgent
Reason for Study: Vertigo / Dizzy
EKG- Treatment ONCE
11/14/24 12:35
BNP [NT-proBNP] Urgent
Complete Blood Count/With Diff Urgent
Comprehensive Metabolic Panel Urgent
Troponin I Urgent
11/14/24 13:59
Orthostatic VS- Treatment ONCE
11/14/24 14:37
0.9% Sodium Chloride 500 ml [Nss] 500 ml IV BOLUS
11/14/24 14:55
Echo 2D MMode Color/Doppler Urgent
Reason for Study: CP, lightheadedness
11/14/24 16:02
Troponin I Urgent
Abnormal Lab Results
11/14/24
12:35
Monocytes % 10.1 H %
(1.7-9.3)
Chloride 110 H mmol/L
(98-107)
Glucose 135 H mg/dl
(70-99)
11/14/24 12:35
11/14/24 12:35
Vital Signs
Initial and Last Documented VS:
Initial Vital Signs
Temp Pulse Resp BP Pulse Ox
36.7 C 75 18 133/77 97
11/14/24 11:11 11/14/24 11:11 11/14/24 11:11 11/14/24 11:11 11/14/24 11:11
Last Documented Vital Signs
Temp Pulse Resp BP Pulse Ox
36.7 C 70 20 123/81 98
11/14/24 11:11 11/14/24 17:45 11/14/24 17:45 11/14/24 15:00 11/14/24 17:45
<Morenita Guzman PA-C - Last Filed: 11/16/24 09:09>
MDM/Problems Addressed
Differential Diagnosis Includes:
dysrhthmia, angina, acs, orthhostasis
MDM/Problems Addressed:
69 y/o M with CVA, s/p loop recorder, no dysrhythmia; but [address] xiao last year
just d/c'd brillinta 2 weeks ago
exertional near syncope/mild sob and chest discomfort x 2 (wednesday and today)
has been able to exercise otherwise;
no full syncope
doesn't look dry;
ekg sinus rhythm with PACs;
1st trop neg
d/w ed attending
recommended cardiology eval
reviewed old cath, had 50% LAD last year that was not treated
exertional component to symptoms hwoever he is able to otherwise perform exercise
has LINQ
will try to get interrotation
s/o dr. flanagan pending cards eval and 2nd trop
<Morenita Guzman PA-C - Last Filed: 11/16/24 09:09>
*Pulse Oximetry
SaO2: 100
Oxygen Mode of Delivery: Room air
Patient hypoxic: no (98)
*Critical Care Note
Total Time (30-74mins, 75-104mins- exclusive of procedures): Not Applicable
ED Attending Note
<Morenita Guzman PA-C - Last Filed: 11/16/24 09:09>
-
Portions of this chart may have been created with voice recognition software.� Occasional wrong word or��sound alike� substitutions may have occurred due to the inherent limitations of voice recognition software.
<Damion Flanagan MD - Last Filed: 11/14/24 17:44>
ED Attending Note
Patient seen and examined by attending physician: Yes
I performed the substantive portion of visit, reviewed & personally made and approve the management plan that is documented in note by myself or NITHIN.: Yes
ED Attending Note:
I have seen and evaluated the patient with a [id number] encounter. I have spoken to the [NTIHIN] and involved in the medical history, the physical exam, medical decision making.
Evaluation and management service: agree unless noted differently below.
Results interpretation: agree unless noted differently below.
69-year-old man with history of CAD with stent presenting to the emergency department with near syncope. Patient states he is very active. However for the past few days he has noticed this he has been feeling dizziness and chest pressure with
exertion. This morning he swam his usual. He did feel slightly off but nothing significant. He went home and then as he was walking he started to feel some chest pressure and felt he was about to faint. He sat down which improved the symptoms
however when he got up the symptoms worsened again. He does not have any history of valvular disease however does have family history of aortic stenosis. During my evaluation patient is resting comfortably. Heart is regular rate and rhythm. No
obvious murmur heard. Lungs are clear to auscultation. Given patient's near syncope upon exertion concern for valvular disease or worsening CAD as he did have 50% LAD stenosis that was not treated. We did discuss with cardiology who evaluated
patient and obtained an echo which was generally unremarkable. Delta troponin negative. Linq recorder with no acute events. Discussed with cardiology who is in agreement with discharge. They will get a stress test completed next week. Patient
does have cardiology appointment for November 27. Strict return precautions given.
Discharge Plan
Departure
Patient Disposition: Home (Routine Discharge)
Date of Disposition: 11/14/24
Time of Disposition: 17:41
Patient with high blood pressure during this ER visit?: No
Discharge Problem:
Near syncope
Instructions: Near Fainting (DC)
Prescriptions:
No Action
losartan 50 mg Tablet
50 mg PO DAILY
amlodipine 5 mg Tablet
5 mg PO DAILY
omeprazole 40 mg Capsule,Delayed Release(Dr/Ec)
40 mg PO DAILY
Tremfya 100 mg/mL Auto-Injector
100 mg SC Q8W
aspirin [Children's Aspirin] 81 mg Tablet,Chewable
81 mg PO DAILY Qty: 0 0RF
therapeutic multivitamin Tablet
1 tab PO DAILY
famotidine 20 mg Tablet
20 mg PO HS
budesonide-formoterol 80-4.5 mcg/actuation Hfa Aerosol Inhaler
2 puff INHALATION R DAILYPRN PRN (Reason: sob)
atorvastatin 40 mg tablet
40 mg PO DAILY
metoprolol succinate 25 mg Tablet Extended Release 24 Hr
12.5 mg PO QPM Qty: 30 5RF
Brilinta 90 mg Tablet
90 mg PO BID Qty: 60 5RF
nitroglycerin 0.4 mg tablet, sublingual
0.4 mg sublingual [id number] PRN (Reason: chest pain) Qty: 25 5RF
Referrals:
Yaneth Rockwell MD [Family Provider, Internal Medicine]
Nayan Dee, [Active, Cardiology] - 11/27/24 12:40 pm
Referral Note: Your appointment time [place] been moved up to 12:40 at [place]. Please call with questions.
Activity Restrictions/Additional Instructions:
Dr. Dee's office will call you tomorrow to give you date/time for stress test likely early next week.
Resume brilinta.
Interventions
Interventions:
*Risk Screen - Suicide Last Done: 11/14/24 11:11
*General Assessment Last Done: 11/14/24 11:11
*Neglect/Abuse Screening Last Done: 11/14/24 11:11
*ED- Fall Risk Assessment Last Done: 11/14/24 12:47
*Nursing Disposition Last Done: 11/14/24 17:54
ED- Cardiac Assessment Last Done: 11/14/24 12:47
ED- Neurological Assessment Last Done: 11/14/24 12:47
Discharge Date and Time
Discharge Date/Time: 11/14/24 17:54
Print Language: ROMANIAN
[2024-11-14 13:40] LABS: ALT (SGPT) 24 U/L (0-50); AST (SGOT) 28 U/L (17-59); Albumin 4.3 g/dl (3.5-5.0); Alkaline Phosphatase 54 U/L (38-126); Blood Urea Nitrogen 16 mg/dl (9-20); Calcium 10.0 mg/dl (8.4-10.2); Carbon Dioxide 26 mmol/L (22-30); Chloride 110 mmol/L (98-107); Estimated Creatinine Clearance 80 ml/min; Glucose 135 mg/dl (70-99); Sodium 144 mmol/L (135-145); Total Protein 6.9 g/dl (6.3-8.2); eGFR > 60.00
[2024-11-14 14:03] LABS: Potassium 4.1 mmol/L (3.5-5.1)
[2024-11-14 14:22] VITALS: BP 126/66
[2024-11-14 14:23] VITALS: BP 127/73
[2024-11-14 14:25] VITALS: BP 122/81
[2024-11-14 14:27] VITALS: BP 122/81; BP 126/66; BP 127/73; PULSE 66; PULSE 68; PULSE 80
[2024-11-14] MEDS: NSS 500 IV (14:49)
[2024-11-14 15:00] VITALS: BP 123/81
--- NOTE | 2024-11-14 15:04 | CON.CAR ---
Addendum entered and electronically signed by Dawit Weller DO 11/15/24 06:54:
I saw and examined the patient 11/14/2024 at 16:40.
The Nitrating Acid Mixer's note was reviewed and I agree with the note.
Comment:
Plan:
He has hx of CVA and PCI 2023 with some residual nonobstructive LAD disease at that time. He presented with symptoms of wooziness/lightheadedness while walking to get coffee this morning. Also had similar symptoms of shorter duration this past
Wednesday. He was able to swim 2/3 of a mile this morning without issue.
His troponin was negative and EKG without ischemic changes
Checked urgent echo showing normal EF
Cont ASA and resume Brilinta which was recently stopped.
If second troponin negative, he can follow up as outpt for ischemic eval with nuclear stress testing which will be ordered.
He appears euvolemic, pBNP 81.
Outpt follow up with Dr Dee arranged.
Pt understands and agrees with status and plan
Discussed with ER
Original Note:
Consultation
Consultation Request
Date/Time Consultation Performed: 11/14/24
Requesting Provider: Dr. Flanagan
Performing Provider: Cyndie Monsalve PA-C for Dr. Montanez
Reason for Consultation: lightheadedness
Medical History
-
Chief Complaint: presyncope
History of Present Illness:
Patient is a 69-year-old male with past medical history of CVA with link implant, hypertension, hyperlipidemia, history of migraines, LOUISE, CAD with MD status post RCA PCI x 2 with residual 50% LAD disease by cath 10/2023. He stopped his brilinta as
directed 10/27/24 as was at 1 year juliet. He reports this past Wednesday he had walked 6 miles. He reports afterward feeling some nausea and lightheadedness/wooziness. He felt as though this was likely the start of a migraine and it went away on its
own. He then states this morning he swam 2/3 of a mile and felt well with this. He then went home, drank some water, and decided he was going to walk to [facility] for a coffee. He reports approx mcc there he had to stop and sit on a bench due to
feeling off and woozy. He reported associated mild SOB and chest discomfort. He states he had pulled a muscle weight lifting earlier in the week and initially the discomfort felt similar to the pulled muscle however then was concerned it felt
similar but 'much more mild' than the discomfort he had in setting of his stents being placed 10/2023 (presenting symptom was throat tightness). He then attempted to walk again after 30 mins of sitting on the bench however half a block later had to
stop with recurrence of symptoms. Called friend who brought him to ER. No present symptoms. Initial trop negative. Cardiology consulted for evaluation.
PMH:
CAD
NSTEMI with periprocedural STEMI s/p 3.5 mm and 3.5 mm Xience to mid to distal RCA 10/28/23
residual 50% LAD lesion by cath 10/28/23
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
PFO, possible ASD noted on transthoracic echocardiogram 03/26/23
s/p LINQ 03/2024
Hx 3.8mm saccular aneurysm arising from the left side of the distal basilar artery
Hypertension
Dyslipidemia
LOUISE/CPAP
History of migraine headache
Family history of DVT/PE in siblings
Past Medical History
Past Medical History: Other (in HPI)
Social History
Tobacco: Non-Smoker
Alcohol: Occasional
Living: Alone
Employment: Employed
Family History
Family History: Early CAD (MD in brother at 49)
Allergies / Home Medications
Allergy/AdvReac Type Severity Reaction Status Date / Time
ramipril (From Altace) Allergy Unknown Verified 07/07/24 11:43
Sulfa (Sulfonamide Allergy Unknown Verified 07/07/24 11:43
Antibiotics)
�Medication �Instructions �Recorded �Confirmed �Type
amlodipine 5 mg tablet 5 mg PO DAILY Blood Pressure 11/09/23 06/13/24 History
guselkumab 100 mg/mL subcutaneous 100 mg SC Q8W PSORIASIS 03/25/23 10/28/23 History
auto-injector (Tremfya)
losartan 50 mg tablet 50 mg PO DAILY Blood Pressure 03/25/23 10/28/23 History
omeprazole 40 mg capsule,delayed 40 mg PO DAILY High Cholesterol 03/25/23 10/28/23 History
release
aspirin 81 mg chewable tablet 81 mg PO DAILY #0 tabs 03/30/23 10/28/23 Rx
(Children's Aspirin)
atorvastatin 40 mg tablet 40 mg PO DAILY 10/28/23 10/28/23 History
budesonide-formoterol HFA 80 2 puff inhalation R DAILYPRN PRN 10/28/23 10/28/23 History
mcg-4.5 mcg/actuation aerosol sob
inhaler
famotidine 20 mg tablet 20 mg PO HS 10/28/23 10/28/23 History
therapeutic multivitamin 1 tab PO DAILY 10/28/23 10/28/23 History
metoprolol succinate 25 mg 12.5 mg (1/2 x 25 mg) PO QPM #30 10/29/23 Rx
tablet,extended release 24 hr tabs
nitroglycerin 0.4 mg sublingual 0.4 mg sublingual [id number] PRN 10/29/23 Rx
tablet chest pain #25 tabs
ticagrelor 90 mg tablet (Brilinta) 90 mg PO BID #60 tabs 10/29/23 Rx
Review of Systems
-
History Source: Patient
All other systems: Negative unless noted
Physical Exam
Vital Signs
Temp Pulse Resp BP Pulse Ox
98.0 F 61 16 122/81 98
11/14/24 11:11 11/14/24 14:25 11/14/24 14:25 11/14/24 14:25 11/14/24 14:23
Lab Results
07/01/25 12:35
11/14/24 12:35
Troponin I < 0.012 ng/ml 11/14/24 12:35
Zpo-Z-Dlyysihocxx Pept 81.0 pg/ml 11/14/24 12:35
Physical Exam
General: No Apparent Distress and Comfortable
HEENT: Normocephalic, Anicteric and Moist Mucous Membranes
Respiratory: Clear and Non Labored Respirations
Cardiac: S1/S2 and Regular Rhythm
GI: Soft, Non Tender, Non Distended and Normal Bowel Sounds
Musculoskeletal: No Clubbing, No Cyanosis and No Edema
Skin: Warm and Dry
Neuro: AO x 3
Impression / Plan
-
Primary Flat Breakdown Processor: Dr. Dee
Assessment:
Presentation with presyncope
Chest discomfort, resolved
Negative trop x1
CAD
NSTEMI with periprocedural STEMI s/p 3.5 mm and 3.5 mm Xience to mid to distal RCA 10/28/23
residual 50% LAD lesion by cath 10/28/23
brilinta discontinued 10/27/24
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
PFO, possible ASD noted on transthoracic echocardiogram 03/26/23
s/p LINQ 03/2024
Hx 3.8mm saccular aneurysm arising from the left side of the distal basilar artery
Hypertension
Dyslipidemia
LOUISE/CPAP
History of migraine headache
Family history of DVT/PE in siblings
ECHO 01/2024: EF 62%, no regional wall motion abnormalities noted, septal hypertrophy, no significant valvular disease
Plan:
- Patient presented with symptoms of wooziness/lightheadedness while walking to get coffee this morning. Also had similar symptoms of shorter duration this past Wednesday. Cardiology consulted due to prior CAD and concern for cardiac involvement.
Was able to swim 2/3 of a mile this morning without issue.
-reviewed cath report from 10/2023
-receiving IVF
-initial trop negative. check 2nd trop
-EKG SR with PACs
-carelink linq implant in ER
-proBNP 81. does not examine in HF
-check echo, last from 01/2024 as above
-continue asa. would consider restarting brilinta for now
-if above without change, would arrange for exercise mibi stress test and follow up
-d/w ER PA via TT
Data Reviewed
-
EKG: Tracing Personally Visualized and interpreted
Medical Tests (Nuc Med, Echo etc): Report Reviewed by me
Labs: Labs Reviewed by me
Old Records: Reviewed
[2024-11-14 16:50] LABS: Troponin I < 0.012 ng/ml
== END 2024-11-14 17:54 | disposition home or self-care (01) ==
LOC: EMR 11:03
PROVIDERS: Emergency Medicine; Physician Assistant; EMERGENCY PHYSICIAN Student in an Organized Health Care Education/Training Program; FAMILY PHYSICIAN Emergency Medicine
DX: R55 Syncope and collapse (principal); R07.89 Other chest pain; R06.02 Shortness of breath; I25.10 Atherosclerotic heart disease of native coronary artery without angina pectoris; K21.9 Gastro-esophageal reflux disease without esophagitis; I10 Essential (primary) hypertension; E78.00 Pure hypercholesterolemia, unspecified; G47.30 Sleep apnea, unspecified; J45.909 Unspecified asthma, uncomplicated; G43.909 Migraine, unspecified, not intractable, without status migrainosus; M19.90 Unspecified osteoarthritis, unspecified site; I25.2 Old myocardial infarction; Z95.5 Presence of coronary angioplasty implant and graft; Z86.73 Personal history of transient ischemic attack (TIA), and cerebral infarction without residual deficits; Z85.828 Personal history of other malignant neoplasm of skin; Z88.2 Allergy status to sulfonamides; Z88.8 Allergy status to other drugs, medicaments and biological substances
CPT/HCPCS: 99284; 80053; 83880; 84484; 85025; 93005; 93306

== ENCOUNTER → 2024-11-16 11:11 | Outpatient (REF) | payer OTHER, SELFPAY | LOC: RCS 11:11 | PROVIDERS: ATTENDING PHYSICIAN Physician Assistant; FAMILY PHYSICIAN Emergency Medicine | DX: I25.10 Atherosclerotic heart disease of native coronary artery without angina pectoris (principal); R07.9 Chest pain, unspecified; R06.02 Shortness of breath; R42 Dizziness and giddiness | CPT/HCPCS: 78452; 93017; A9500 ==